=== PATIENT | male | born 1950 | race Caucasian/White ===

== ENCOUNTER 2018-03-01 08:48 | Inpatient (IN) | payer MEDICARE, SELFPAY ==
[2018-03-01] VITALS (29 sets, daily range): BP systolic 91–172; BP diastolic 58–119; PULSE 114–169; RESP 12–25; TEMP 36.5–37.2; O2SAT 92–127; BMI 38.6; BMI 38.0
--- NOTE | 2018-03-01 08:52 | NURSING ---
NO OLD EKGS
--- NOTE | 2018-03-01 08:56 | EKG12_ITS ---
Test Reason : Blood Pressure : / mmHG Vent. Rate : 063 BPM Atrial Rate : 063 BPM P-R Int : 162 ms QRS Dur : 090 ms QT Int : 422 ms P-R-T Axes : 057 017 033 degrees QTc Int : 431 ms Normal sinus rhythm Poor R wave progression Confirmed by JEAN ALONZO, RALPH ([id number]), manager editorial BARRETT GARCIA ([id number] on 03/08/2018 1:38:09 PM Referred By: JEAN Confirmed By:RALPH PENA MD
--- NOTE | 2018-03-01 08:56 | RAD_ITS ---
STUDY: X-RAY CHEST REASON FOR EXAM: Male, 68 years old. Chest discomfort for 6 months. Increased shortness of breath. TECHNIQUE: Frontal and lateral views of the chest. COMPARISON: None. FINDINGS: The lungs are mildly hyperexpanded. There is no demonstrated pleural abnormality. There is moderate cardiomegaly. Normal mediastinum and hussain. Normal visualized pulmonary arteries. Normal visualized aortic arch and descending thoracic aorta. Normal visualized thoracic spine. Normal visualized ribs, clavicles, and shoulders. There is no demonstrated abnormality of the visualized soft tissue structures of the upper abdomen. RAD/Chest PA and Lateral IMPRESSION: Moderate cardiomegaly with hyperexpansion. No acute pathology. Electronically Signed: Tino Palomo MD at 11:05 EST , Service support ,
--- NOTE | 2018-03-01 08:58 | ED.VISSUMM ---
- ER Visit Summary Date of Service: 03/01/18 Chief Complaint: Shortness of breath History of Present Illness: The patient is a 68 M patient presented for evaluation secondary to shortness of breath and atrial flutter. Patient reports that over the course of about the last week or so he has been having issues with shortness of breath. This is associated with dyspnea on exertion and occasional chest discomfort. Patient states that he has had a mild nonproductive cough associated with this. Denies any fevers. Denies any nausea vomiting diarrhea or any other infectious signs or symptoms. He does have an underlying history of asthma. Patient was at his primary care office today, had an EKG taken which showed atrial flutter so is recommended to come to the emergency department. Physical Examination: Vital signs notable heart rate of 151 blood pressure 172/119. Obese male no acute distress. Moist mucous membranes. No JVD. Heart was irregular and tachycardic. 2+ radial pulses bilaterally symmetric. Lung sounds are clear respirations nondistressed. Abdomen soft nontender. No peripheral edema. Skin normal color no rash patient alert and oriented normal strength and sensation. Test Results: Atrial flutter with a 2-[address], T changes, CBC, chemistry, troponin unremarkable. Chest x-ray per my personal review shows no evidence of acute pathology. Emergency Department Course and Treatment: Patient presented with new onset atrial flutter. Workup as noted above was found to be unremarkable other than the patient's EKG. Patient was given Cardizem to 25 mg boluses in the emergency department and continued to have tachycardia. He was started on a Cardizem drip. I believe the patient requires admission. Disposition: Admission Impression: 1. New onset atrial flutter with rapid ventricular rate Critical care time 35 minutes spent consulting with inpatient providers, reviewing patient's records, and administering IV antiarrhythmics. This note was generated with [employer] dictation software. It may contain incorrect words, spelling, and punctuation that were not noted in review of the chart prior to signing ED Disposition - Plan for ED Patient: Chief Complaint: Chest Pain Referrals: Jeevan Hook MD [Primary Care Provider] -
[2018-03-01] MEDS: dilTIAZem 25 MG/5 ML Vial IV BOLUS ×2 (09:01→09:54)
[2018-03-01] MEDS: Aspirin 81 MG TAB.CHEW 324 MG PO (09:01)
[2018-03-01 09:07] LABS: Absolute Lymphocyte Count 2.99 X10^3/ul (0.83-4.51); Absolute Neutrophil Count 4.5 X10^3/uL (2.0-7.7); Basophil# 0.01 X10^3/uL; Basophil% 0.1 % (0-1); Eosinophil# 0.17 X10^3/uL; Hematocrit 44.2 % (40-54); Lymphocyte # 2.99 X10^3/ul (4.0); Mean Corp Hgb Conc 33.9 g/gl (32-36); Mean Corpuscular Hgb 31.4 pg (27.0-32.0); Mean Corpuscular Volume 92.5 fL (80-94); Mean Platelet Vol. 9.7 fl (6.2-12.0); Monocyte# 0.89 X10^3/uL; Monocyte% 10.4 % (0-10); Neutrophil # 4.46 X10^3/uL (2.7-7.7); Neutrophil % 52.3 % (47-70); Platelet Count 183 K/mm3 (150-450); RBC Distribution Width CV 13.1 % (11.6-14.6); RBC Distribution Width SD 44.1 fl (35.1-43.9); Red Blood Count 4.78 M/mm3 (4.6-6.2); White Blood Count 8.5 K/mm3 (4.4-11.0)
[2018-03-01 09:09] LABS: POSITIVE COUNT NO; POSITIVE DIFFERENTIAL NO; POSITIVE MORPHOLOGY NO
[2018-03-01 09:21] LABS: Anion Gap 9 (5-15); BUN 20 mg/dL (7-18); Chloride 105 mmol/L (98-107); Creatinine, Serum 1.25 mg/dL (0.70-1.30); EST Glomerular Filtration Rate 61 mL/min (>60); Est Glom Filt Rate - Afr Amer 73 mL/min (>60); Estimated Creatinine Clearance 60.36 ml/min; Glucose 114 mg/dL (74-106); Potassium 3.5 mmol/L (3.5-5.1); Sodium Level 139 mmol/L (136-145)
--- NOTE | 2018-03-01 11:29 | ECHOCS_ITS ---
Reason For Study: AFlutter Procedure This was a 2D Doppler, Color Flow transthoracic echocardiogram. Contrast injection was performed. Exam performed portable in patient room. Left Ventricle Mild concentric left ventricular hypertrophy. The estimated ejection fraction is 10-15 %. Unable to assess diastolic dysfunction. There is severe global hypokinesis of the left ventricle. Right Ventricle Severely dilated right ventricle. Mild to moderate global right ventricular systolic dysfunction. Atria The left atrium is severely enlarged. The right atrium is severely enlarged. Normal atrial septum. Mitral Valve The mitral valve is structurally normal. No prolapse or stenosis seen. Tricuspid Valve Normal tricuspid valve. Unable to estimate RV systolic pressure due to inadequate jet, pulmonary artery pressure probably normal. Aortic Valve Trisinus/trileaflet aortic valve. Pulmonic Valve Normal pulmonic valve. Great Vessels Normal aortic root. Normal arch. The inferior vena cava is dilated. Inferior vena cava collapse with sniff. Medication Diluted definity 5ml given slow IV push to enhance endocardial definition. MMode/2D Measurements & Calculations LVIDd: 5.2 cm IVSd: 1.3 cm Ao root diam: 4.1 cm LVIDs: 4.2 cm LVPWd: 1.2 cm LA dimension: 4.6 cm RVDd: 5.2 cm FS: 18.5 % LAV(MOD-sp4): 90.6 ml LVAd ap4: 33.0 cm2 SV(MOD-sp4): 29.6 ml EDV(MOD-sp4): 115.8 ml EDV(sp4-el): 114.3 ml LVAs ap4: 26.8 cm2 ESV(MOD-sp4): 86.2 ml ESV(sp4-el): 84.8 ml EF(MOD-sp4): 25.5 % EF(sp4-el): 25.8 % SV(sp4-el): 29.5 ml LA A4 area: 26.7 cm2 LA Area_phl: 27.7 cm2 RA A4 area: 24.9 cm2 Doppler Measurements & Calculations Ao V2 max: 80.1 cm/sec LV V1 max: 63.9 cm/sec PA V2 max: 75.7 cm/sec Ao max P.6 mmHg LV V1 max P.6 mmHg Ao V2 mean: 56.1 cm/sec LV V1 mean P.68 mmHg Ao mean P.4 mmHg LV V1 mean: 36.9 cm/sec Ao V2 VTI: 11.8 cm LV V1 VTI: 9.2 cm Interpretation Summary Mild concentric left ventricular hypertrophy. The estimated ejection fraction is 10-15 %. Unable to assess diastolic dysfunction. There is severe global hypokinesis of the left ventricle. Severely dilated right ventricle. Mild to moderate global right ventricular systolic dysfunction. The left atrium is severely enlarged. The right atrium is severely enlarged. Unable to estimate RV systolic pressure due to inadequate jet, pulmonary artery pressure probably normal. The inferior vena cava is dilated Pt appears to be in atrial flutter. The study was technically difficult. There is no comparison study available. Contrast injection was performed. Ordering Physician: Yusuf Waite Referring Physician: Jeevan Hook Performed By: Aki Kingsley RCS
[2018-03-01] MEDS: Enoxaparin 150 MG/ML Syringe 130 MG SC ×2 (12:15→21:56)
--- NOTE | 2018-03-01 13:32 | PCM.CONS.C ---
Problem List (1) Atrial flutter Status: Acute Reason for Consult Date of Consultation: 03/01/18 Reason for Consultation: Atrial flutter, shortness of breath and dyspnea on exertion History of Present Illness: The patient is a 68 year old M, nondiabetic, non-smoker currently but quit around 4 years ago after a [id number] smoking history. No previous known coronary disease, hypertension, hypercholesterolemia, arrhythmias, CVA, TIA or myocardial infarction. He does not see a ophthalmologist regularly. The patient notes that about 1 year ago he began developing shortness of breath which is progressively worsened over the last several weeks to months. Patient recently underwent strenuous exercise helping to do some construction at his house, he became profoundly short of breath requiring several minutes to recover. Patient had no associated nausea vomiting or chest pain. He sought medical attention in his PCPs office an EKG was performed today which showed atrial flutter with rapid ventricular response. Patient is [place] no sensation of palpitations and does not recall when he may have gone into atrial flutter. He denies any previous diagnosis of atrial fibrillation or flutter. Currently he is resting comfortably, is at his bedside, no acute distress. Patient does state that he occasionally snores, but does not sleep well. He has never been tested for sleep apnea. EKG shows atrial flutter with rapid ventricular response. Cardizem drip is in place. [] Past Medical History Allergies/Adverse Reactions: Allergies No Known Allergies Allergy (Verified 05/29/15 16:14) Home Medications: Ambulatory Orders Medication Instructions Recorded Budesonide/Formoterol Fumarate 1 puff INHALATION PRN PRN 03/01/18 [Symbicort 80-4.5 Mcg Inhaler] Smoking Status: Former smoker Review of Systems - Review of Systems General: Denies: Fever, Night Sweats, Fatigue Cardiovascular: Reports: Shortness of Breath, Shortness of Breath at Rest, Shortness of Breath with Exertion. Denies: Chest Discomfort, Orthopnea, PND, Peripheral Edema, Palpitations, Lightheadedness, Dizziness, Near Syncope, Syncope Respiratory: Denies: Cough, Sputum Production, Hemoptysis Gastrointestinal: Denies: Hematemesis, Hematochezia, Melena Genitourinary: Denies: Dysuria, Hematuria Skin: Denies: Rash Subjectve: Patient laying in bed, no acute distress. Objective: Vital Signs Temp Pulse Resp BP Pulse Ox 97.7 F L 125 H 15 115/91 H 94 03/01/18 12:15 03/01/18 13:00 03/01/18 13:00 03/01/18 13:00 03/01/18 13:00 Oxygen Flow Rate (L/min) 2 Oxygen Delivery Method Room Air Weight: 279 lb 15.793 oz Body Mass Index (BMI) 38.0 Intake and Output for Last 24 Hours 02/27/18 02/28/18 03/01/18 23:59 23:59 23:59 Intake Total 208.8 / 208.8 Output Total 200 / 200 Balance 8.8 / 8.8 General: Awake, Alert, Oriented x 3 HEENT: PERRL, EOMI, Sclera Non Icteric Neck: Supple, Good ROM, No Lymph Node Enlargement Lungs: Clear to auscultation Cardiovascular: Irregular Rhythm, Normal S1, Normal S2, No Murmurs, No Rubs, No Gallops Vascular: No Carotid Bruits, Normal Femoral Pulses, Normal Radial Pulses, Normal Dorsalis Pedal Pulse, Normal Posterior Tibial Pulses Abdomen: Bowel Sounds Present, Soft, Non Tender, No HSM, No Organomegaly Extremities: No Cyanosis, No Clubbing, No edema Neurological: No Focal Motor or Sensory Deficit 03/01/18 08:56: WBC 8.5, RBC 4.78, Hgb 15.0, Hct 44.2, MCV 92.5, MCH 31.4, MCHC 33.9, RDW 13.1, RDW Differential 44.1 H, Plt Count 183, MPV 9.7, Immature Gran % (Auto) 0.200, Neut % (Auto) 52.3, Lymph % (Auto) 35.0, [place] % (Auto) 10.4 H, Eos % (Auto) 2.0, Baso % (Auto) 0.1, Absolute Neuts (auto) 4.5, Total Counted Not Reportable 03/01/18 08:56: Sodium 139, Potassium 3.5, Chloride 105, Carbon Dioxide 25.0, Anion Gap 9, BUN 20 H, Creatinine 1.25, Est GFR (MDRD) Af Amer 73, Est GFR (MDRD) Non-Af 61, BUN/Creatinine Ratio 16.0, Glucose 114 H, Calcium 8.0 L, Troponin I < 0.015 03/01/18 11:45: Troponin I < 0.015 Rhythm: EKG: As above ECHO: Pending Stress Test: Pending Cardiac Cath: PCI: CT Surgery: Holter monitor: EPS: PPM: CXR: Chest CT Scan: Assessment/Plan 1. Atrial flutter: The patient has newly discovered atrial flutter of unknown duration, and his ventricular response is not well controlled. I recommended that he be admitted with subcu Lovenox 1 mg/kg subcu twice daily, Cardizem drip titrated up to keep his heart rate less than 100, rule out for myocardial infarction x3 sets, and if negative proceed with treadmill echocardiogram. If his troponins are abnormal, he will need to proceed with left heart catheterization. In addition he has a 2D echo with Doppler ordered, with results pending. Depending upon the results we will determine whether he requires a stress test or direct catheterization. Assuming he does not require catheterization with then transition him to Eliquis 5 mg p.o. twice daily for period of at least 3 weeks time followed by DC cardioversion if he has not spontaneously converted. In addition we will continue IV Cardizem drip for heart rate control and then transition him to either beta-blockers or p.o. Cardizem depending upon the outcome of his LV function and response IV Cardizem drip. Would also recommend he undergo an outpatient sleep study to determine if he has undiagnosed obstructive sleep apnea. In addition recommend checking a TSH, T4, and lipid profile. 2. Thank you very much for the opportunity to precipitate in the cardiac care of your patient. Consultation time took place between 12 and 12:30 PM. Code Visit Inpatient E&M: 45884 Init Hosp L2
[2018-03-01 14:11] LABS: Cholesterol 159 mg/dL (200); High Density Lipoprotein 39 mg/dL; T4 Free Direct 0.93 ng/dL (0.76-1.46); Thyroid Stim Hormone (TSH) 1.49 uIU/mL (0.358-3.74); Triglycerides 76 mg/dL; Very Low Density Lipoprotein 15 mg/dL (5-40)
--- NOTE | 2018-03-01 14:29 | PCM.HP.STD ---
Problem List (1) Chest pain Status: Acute Qualifiers: Chest pain type: unspecified Qualified Code(s): R07.9 - Chest pain, unspecified (2) Atrial flutter Status: Acute Qualifiers: Atrial flutter type: typical Qualified Code(s): I48.3 - Typical atrial flutter History of Present Illness Date of Admission: 03/01/18 Chief Complaint: shortness of breath. The patient is a 68 year old M having increased dyspnea on exertion. Patient was seeing his primary care doctor's the assumption was that this is asthma and was giving some inhalers. Patient was not noting any benefit from the inhalers. They got an EKG that showed atrial flutter and patient was sent to the emergency room. In the emergency room, patient was noted to be in atrial flutter with RVR and he received total of 50 mg of IV diltiazem followed by a diltiazem drip. Patient has never had atrial flutter before. [] Past Medical History Allergies No Known Allergies Allergy (Verified 05/29/15 16:14) Home Medications: Ambulatory Orders Medication Instructions Recorded Budesonide/Formoterol Fumarate 1 puff INHALATION PRN PRN 03/01/18 [Symbicort 80-4.5 Mcg Inhaler] Surgical History: no surgical history Smoking Status: Former smoker - Quit 30 years ago Tobacco Use: Non-smoker Alcohol: None Drugs: None - *Family History Maternal History Items: Heart Disease Review of Systems Constitutional: Denies: Anorexia, Chills, Fever Eyes: Denies: Blurred vision, Double vision HEENT: Denies: Head Aches, Sinus Congestion, Sinus Drainage Cardiovascular: Reports: Chest Pain. Denies: Palpitations Respiratory: Reports: Shortness of Breath, Shortness of breath upon exertion Gastrointestinal: Denies: Abdominal Pain, Nausea, Vomiting Genitourinary: Denies: Dysuria Musculoskeletal: Denies: Joint Pain, Joint Tenderness Skin: Denies: Rash, Wounds Neurological: Denies: Numbness, Tingling, Focal weakness Psychiatric: Denies: Anxiety, Depression Endocrine: Denies: Change in Body Habitus, Heat/ Cold Intolerance Hematologic/ Lymphatic: Denies: Easy Bruising, Easy Bleeding, Hx of blood clot Comment: A 10 point review of systems were negative except as mentioned in the history of present illness and the other review of systems. VTE Information - Inpt Only VTE Present on Admission: No VTE Mechan Device Prophylaxis: SCD's, None VTE Pharm Prophylaxis ordered?: Yes Patient Problems: Active and Suspected Problems Atrial flutter (Acute) Chest pain (Acute) - Physical Exam General: Alert, Cooperative, No apparent distress HEENT: Atraumatic, Normocephalic Oral: Moist Mucosa, No Gingival or Mucosal Lesions/ Ulcerations Neck: No Nodes, Thyroid Normal Size and Texture Lungs: Clear to auscultation, Normal air movement, No rhonchi, No wheeze Cardiovascular: Irregular Rate, Tachycardic Abdomen: Bowel Sounds Present, Soft, Non Tender, Non-Distended, No Hepato-splenomegaly, Passing Flatus Extremities: No clubbing, No cyanosis, No edema, No Calf Tenderness Skin: No rashes, No breakdown Neurological: Deep Tendon Reflexes 2+/4 and Symmetrical, Coordination normal Psych/Mental Status: Normal Affect, Appropriate Vital Signs Temp Pulse Resp BP Pulse Ox 36.6 C 126 H 22 H 95/58 L 96 03/01/18 13:30 03/01/18 14:00 03/01/18 14:00 03/01/18 14:00 03/01/18 14:00 Oxygen Flow Rate (L/min) 2 Oxygen Delivery Method Room Air Weight: 127 kg Body Mass Index (BMI) 38.0 Intake and Output for Last 24 Hours 02/27/18 02/28/18 03/01/18 23:59 23:59 23:59 Intake Total 208.8 / 208.8 Output Total 200 / 200 Balance 8.8 / 8.8 Laboratory Tests Past 24 Hrs 03/01/18 03/01/18 03/01/18 08:56 08:56 11:45 WBC 8.5 RBC 4.78 Hgb 15.0 Hct 44.2 MCV 92.5 MCH 31.4 MCHC 33.9 RDW 13.1 RDW Differential 44.1 H Plt Count 183 MPV 9.7 Immature Gran % (Auto) 0.200 Neut % (Auto) 52.3 Lymph % (Auto) 35.0 [place] % (Auto) 10.4 H Eos % (Auto) 2.0 Baso % (Auto) 0.1 Absolute Neuts (auto) 4.5 Absolute Lymphs (auto) 2.99 Total Counted Not Reportable Sodium 139 Potassium 3.5 Chloride 105 Carbon Dioxide 25.0 Anion Gap 9 BUN 20 H Creatinine 1.25 Estim Creat Clear Calc 60.36 Est GFR (MDRD) Af Amer 73 Est GFR (MDRD) Non-Af 61 BUN/Creatinine Ratio 16.0 Glucose 114 H Calcium 8.0 L Troponin I < 0.015 < 0.015 Triglycerides Cholesterol LDL Cholesterol VLDL Cholesterol HDL Cholesterol TSH Free T4 03/01/18 03/01/18 11:45 13:10 WBC RBC Hgb Hct MCV MCH MCHC RDW RDW Differential Plt Count MPV Immature Gran % (Auto) Neut % (Auto) Lymph % (Auto) [place] % (Auto) Eos % (Auto) Baso % (Auto) Absolute Neuts (auto) Absolute Lymphs (auto) Total Counted Sodium Potassium Chloride Carbon Dioxide Anion Gap BUN Creatinine Estim Creat Clear Calc Est GFR (MDRD) Af Amer Est GFR (MDRD) Non-Af BUN/Creatinine Ratio Glucose Calcium Troponin I < 0.015 Triglycerides 76 Cholesterol 159 LDL Cholesterol 105 VLDL Cholesterol 15 HDL Cholesterol 39 L TSH 1.49 Free T4 0.93 Assessment/Plan All Active Problems Atrial flutter (Acute) Chest pain (Acute) 1. Atrial flutter with RVR Currently on diltiazem drip plus labetalol. Anticoagulated with Lovenox at this time Follow-up echocardiogram Cardiology following 2. Chest pressure Atypical Rule out cardiac with nuclear stress test 3. DVT prophylaxis: Patient is anticoagulated. Discussed with the patient's significant other at bedside Code Visit Inpatient E&M: [id number] Init Hosp L3
--- NOTE | 2018-03-01 14:34 | HP.PCM_ITS ---
Problem List (1) Chest pain Status: Acute Qualifiers: Chest pain type: unspecified Qualified Code(s): R07.9 - Chest pain, unspecified (2) Atrial flutter Status: Acute Qualifiers: Atrial flutter type: typical Qualified Code(s): I48.3 - Typical atrial flutter History of Present Illness Date of Admission: 03/01/18 Chief Complaint: shortness of breath. The patient is a 68 year old M having increased dyspnea on exertion. Patient was seeing his primary care doctor's the assumption was that this is asthma and was giving some inhalers. Patient was not noting any benefit from the inhalers. They got an EKG that showed atrial flutter and patient was sent to the emergency room. In the emergency room, patient was noted to be in atrial flutter with RVR and he received total of 50 mg of IV diltiazem followed by a diltiazem drip. Patient has never had atrial flutter before. [] Past Medical History Allergies No Known Allergies Allergy (Verified 05/29/15 16:14) Home Medications: Ambulatory Orders Medication Instructions Recorded Budesonide/Formoterol Fumarate 1 puff INHALATION PRN PRN 03/01/18 [Symbicort 80-4.5 Mcg Inhaler] Surgical History: no surgical history Smoking Status: Former smoker - Quit 30 years ago Tobacco Use: Non-smoker Alcohol: None Drugs: None - *Family History Maternal History Items: Heart Disease Review of Systems Constitutional: Denies: Anorexia, Chills, Fever Eyes: Denies: Blurred vision, Double vision HEENT: Denies: Head Aches, Sinus Congestion, Sinus Drainage Cardiovascular: Reports: Chest Pain. Denies: Palpitations Respiratory: Reports: Shortness of Breath, Shortness of breath upon exertion Gastrointestinal: Denies: Abdominal Pain, Nausea, Vomiting Genitourinary: Denies: Dysuria Musculoskeletal: Denies: Joint Pain, Joint Tenderness Skin: Denies: Rash, Wounds Neurological: Denies: Numbness, Tingling, Focal weakness Psychiatric: Denies: Anxiety, Depression Endocrine: Denies: Change in Body Habitus, Heat/ Cold Intolerance Hematologic/ Lymphatic: Denies: Easy Bruising, Easy Bleeding, Hx of blood clot Comment: A 10 point review of systems were negative except as mentioned in the history of present illness and the other review of systems. VTE Information - Inpt Only VTE Present on Admission: No VTE Mechan Device Prophylaxis: SCD's, None VTE Pharm Prophylaxis ordered?: Yes Patient Problems: Active and Suspected Problems Atrial flutter (Acute) Chest pain (Acute) - Physical Exam General: Alert, Cooperative, No apparent distress HEENT: Atraumatic, Normocephalic Oral: Moist Mucosa, No Gingival or Mucosal Lesions/ Ulcerations Neck: No Nodes, Thyroid Normal Size and Texture Lungs: Clear to auscultation, Normal air movement, No rhonchi, No wheeze Cardiovascular: Irregular Rate, Tachycardic Abdomen: Bowel Sounds Present, Soft, Non Tender, Non-Distended, No Hepato- splenomegaly, Passing Flatus Extremities: No clubbing, No cyanosis, No edema, No Calf Tenderness Skin: No rashes, No breakdown Neurological: Deep Tendon Reflexes 2+/4 and Symmetrical, Coordination normal Psych/Mental Status: Normal Affect, Appropriate Vital Signs Temp Pulse Resp BP Pulse Ox 36.6 C 126 H 22 H 95/58 L 96 03/01/18 13:30 03/01/18 14:00 03/01/18 14:00 03/01/18 14:00 03/01/18 14:00 Oxygen Flow Rate (L/min) 2 Oxygen Delivery Method Room Air Weight: 127 kg Body Mass Index (BMI) 38.0 Intake and Output for Last 24 Hours 02/27/18 02/28/18 03/01/18 23:59 23:59 23:59 Intake Total 208.8 / 208.8 Output Total 200 / 200 Balance 8.8 / 8.8 Laboratory Tests Past 24 Hrs 03/01/18 03/01/18 03/01/18 08:56 08:56 11:45 WBC 8.5 RBC 4.78 Hgb 15.0 Hct 44.2 MCV 92.5 MCH 31.4 MCHC 33.9 RDW 13.1 RDW Differential 44.1 H Plt Count 183 MPV 9.7 Immature Gran % (Auto) 0.200 Neut % (Auto) 52.3 Lymph % (Auto) 35.0 [place] % (Auto) 10.4 H Eos % (Auto) 2.0 Baso % (Auto) 0.1 Absolute Neuts (auto) 4.5 Absolute Lymphs (auto) 2.99 Total Counted Not Reportable Sodium 139 Potassium 3.5 Chloride 105 Carbon Dioxide 25.0 Anion Gap 9 BUN 20 H Creatinine 1.25 Estim Creat Clear Calc 60.36 Est GFR (MDRD) Af Amer 73 Est GFR (MDRD) Non-Af 61 BUN/Creatinine Ratio 16.0 Glucose 114 H Calcium 8.0 L Troponin I < 0.015 < 0.015 Triglycerides Cholesterol LDL Cholesterol VLDL Cholesterol HDL Cholesterol TSH Free T4 03/01/18 03/01/18 11:45 13:10 WBC RBC Hgb Hct MCV MCH MCHC RDW RDW Differential Plt Count MPV Immature Gran % (Auto) Neut % (Auto) Lymph % (Auto) [place] % (Auto) Eos % (Auto) Baso % (Auto) Absolute Neuts (auto) Absolute Lymphs (auto) Total Counted Sodium Potassium Chloride Carbon Dioxide Anion Gap BUN Creatinine Estim Creat Clear Calc Est GFR (MDRD) Af Amer Est GFR (MDRD) Non-Af BUN/Creatinine Ratio Glucose Calcium Troponin I < 0.015 Triglycerides 76 Cholesterol 159 LDL Cholesterol 105 VLDL Cholesterol 15 HDL Cholesterol 39 L TSH 1.49 Free T4 0.93 Assessment/Plan All Active Problems Atrial flutter (Acute) Chest pain (Acute) 1. Atrial flutter with RVR * Currently on diltiazem drip plus labetalol. Anticoagulated with Lovenox at this time * Follow-up echocardiogram * Cardiology following 2. Chest pressure * Atypical * Rule out cardiac with nuclear stress test 3. DVT prophylaxis: Patient is anticoagulated. Discussed with the patient's significant other at bedside Code Visit Inpatient E&M: [id number] Init Hosp L3
[2018-03-01] MEDS: Carvedilol 3.125 MG TABLET PO ×2 (15:07→21:53)
[2018-03-01] MEDS: 0.9% NaCl Peripheral Flush Adult/Peds IV ×2 (16:22→20:32)
[2018-03-01] MEDS: Metoprolol Tartrate 5 MG/5 ML Vial IV ×2 (16:22→20:33)
[2018-03-02] VITALS (35 sets, daily range): BP systolic 77–124; BP diastolic 21–95; PULSE 117–123; RESP 12–25; TEMP 36.5–36.9; O2SAT 92–100
--- NOTE | 2018-03-02 00:58 | NURSING ---
This nurse taking over care of this pt. at this time. Report received from Myke Chacon RN,.
[2018-03-02] MEDS: Metoprolol Tartrate 5 MG/5 ML Vial IV ×2 (02:37→17:25)
[2018-03-02] MEDS: 0.9% NaCl Peripheral Flush Adult/Peds IV ×5 (02:38→17:25)
[2018-03-02 07:40] LABS: International Normalized Ratio 1.1; Prothrombin Time (Protime)PT. 14.5 SECONDS (11.7-14.9)
[2018-03-02] MEDS: Aspirin 81 MG TAB.CHEW PO (08:16)
[2018-03-02] MEDS: Carvedilol 3.125 MG TABLET PO ×2 (08:16→10:49)
[2018-03-02] MEDS: Enoxaparin 150 MG/ML Syringe 130 MG SC ×2 (08:16→22:03)
[2018-03-02 10:04] LABS: Anion Gap 8 (5-15); BUN 17 mg/dL (7-18); Calcium,Total 7.9 mg/dL (8.5-10.1); Chloride 108 mmol/L (98-107); Creatinine, Serum 1.06 mg/dL (0.70-1.30); EST Glomerular Filtration Rate 73 mL/min (>60); Est Glom Filt Rate - Afr Amer 89 mL/min (>60); Estimated Creatinine Clearance 71.17 ml/min; Glucose 106 mg/dL (74-106); Potassium 4.1 mmol/L (3.5-5.1); Sodium Level 140 mmol/L (136-145); Thyroid Stim Hormone (TSH) 1.18 uIU/mL (0.358-3.74)
--- NOTE | 2018-03-02 10:58 | PN.CARD_ITS ---
Subjectve: Patient still in atrial flutter this morning with 2-1 conduction. No improvement with maximum dose IV Cardizem on the floor. Coreg started yesterday with no significant improvement in heart rate. Echocardiogram done yesterday showed severe LV dysfunction with biventricular failure, with an EF around 10- 15%. Nuclear medicine stress test canceled. Objective: Vital Signs Temp Pulse Resp BP Pulse Ox 98.0 F 120 H 13 113/84 H 94 03/02/18 08:00 03/02/18 08:00 03/02/18 08:00 03/02/18 08:00 03/02/18 08:00 Oxygen Flow Rate (L/min) 2 Oxygen Delivery Method Room Air Weight: 279 lb 15.793 oz Body Mass Index (BMI) 38.0 Intake and Output for Last 24 Hours 02/28/18 03/01/18 03/02/18 23:59 23:59 23:59 Intake Total 972.8 / 972.8 197 / 197 Output Total 1050 / 1050 400 / 400 Balance -77.2 / -77.2 -203 / -203 General: Awake, Alert, Oriented x 3 HEENT: PERRL, EOMI, Sclera Non Icteric Neck: Supple, Good ROM, No Lymph Node Enlargement Lungs: Clear to auscultation Cardiovascular: Regular Rhythm, Normal S1, Normal S2, No Murmurs, No Rubs, No Gallops Vascular: No Carotid Bruits, Normal Femoral Pulses, Normal Radial Pulses, Normal Dorsalis Pedal Pulse, Normal Posterior Tibial Pulses Abdomen: Bowel Sounds Present, Soft, Non Tender, No HSM, No Organomegaly Extremities: No Cyanosis, No Clubbing, No edema Neurological: No Focal Motor or Sensory Deficit 03/01/18 11:45: Troponin I < 0.015 03/01/18 11:45: Triglycerides 76, Cholesterol 159, LDL Cholesterol 105, VLDL Cholesterol 15, HDL Cholesterol 39 L 03/01/18 13:10: Troponin I < 0.015 03/02/18 07:08: PT 14.5, INR 1.1 03/02/18 07:08: Sodium 140, Potassium 4.1, Chloride 108 H, Carbon Dioxide 24.0, Anion Gap 8, BUN 17, Creatinine 1.06, Est GFR (MDRD) Af Amer 89, Est GFR (MDRD) Non-Af 73, BUN/Creatinine Ratio 16.0, Glucose 106, Calcium 7.9 L Rhythm: Telemetry atrial flutter with rapid ventricular response EKG: ECHO: As above Stress Test: Cardiac Cath: PCI: CT Surgery: Holter monitor: EPS: PPM: CXR: Chest CT Scan: Medical Necessity - Tobacco Use Smoking Status: Former smoker - Quit 30 years ago Tobacco Use: Non-smoker Assessment/Plan 1. Atrial flutter: The patient has newly discovered atrial flutter of unknown duration, and his ventricular response is not well controlled. I recommended that he be admitted with subcu Lovenox 1 mg/kg subcu twice daily,, and patient was tried on a Cardizem drip with unsuccessful heart rate control despite maximal dose of Cardizem. At this point would recommend initiating amiodarone therapy IV per protocol, followed by p.o. amiodarone. His 2D echo with Doppler shows severe global LV dysfunction with an EF around 10-15% and significant RV enlargement. I recommended the patient's stress test be canceled given his severe LV dysfunction, and that he proceed with a left heart catheterization with Dr. Orantes tomorrow morning. In anticipation of possible intervention I will loaded with 300 mg of Plavix x1 followed by 75 mg p.o. daily and 81 mg a day of baby aspirin. If he requires no stenting, I would discontinue his Plavix and substitute this for Eliquis 5 mg p.o. twice daily. If he does not chemically cardiovert with amiodarone, would recommend DC cardioversion in 4 weeks time. Would also recommend he undergo an outpatient sleep study to determine if he has undiagnosed obstructive sleep apnea. In addition recommend checking a TSH, T4, and lipid profile. 2. Thank you very much for the opportunity to precipitate in the cardiac care of your patient. Code Visit Inpatient E&M: 09483 Subs Hosp L2
--- NOTE | 2018-03-02 12:33 | PCM.PROGNOTE ---
Patient Problems: Active and Suspected Problems Atrial flutter (Acute) Chest pain (Acute) Subjective: The patient is a 68-year-old male who presented to the emergency department at [facility] complaining of dyspnea on exertion. He had been having shortness of breath for approximately 1 year. EKG in his primary care doctor's office showed atrial flutter. EKG in the emergency room also showed atrial flutter with rapid ventricular response and he was treated with 15 mg of IV diltiazem followed by a drip. Echocardiogram has showed a 10-15% ejection fraction with mild concentric left ventricular hypertrophy. There was severe global hypokinesis of the left ventricle and a severely dilated right ventricle. Both atria were severely enlarged. Etiology of the CM is unknown at this time....ischemic vs tachycardia induced. He has been seen by Dr. Narendra Lopez and I discussed the case with Dr. Lopez. Patient will need a cardiac catheterization going forward so no stress test during this admission. All events of the past 24 hours been reviewed. Heart rate remains elevated in the 120s range since admission. Fluid balance since admission is -280. Blood pressures are on the low side and at one point early this morning his blood pressure was 81/71. Current blood pressure is 94/74. Electrolytes are unremarkable today and the potassium is 4.1. BUN is 17 and his creatinine has improved from 1.25 at admission to 1.06 today. Troponin x2 were negative. TSH is normal and so is the T4. LDL is 105 with an HDL of 39 and normal triglycerides. Currently being treated with an amiodarone infusion, aspirin, Plavix, carvedilol Objective: General: alert, oriented X3, appropriate with normal affect Neck: supple, trachea midline, carotids have brisk upstroke and decreased pulse volume, + JVD, no carotid bruits Lungs: CTA, symmetric chest expansion, not tachypneic, able to lie flat with no respiratory distress Heart: tachycardic rate and regular rhythm, normal S1, normal S2, no murmur, no gallop, no rub Abdomen: soft, NT, ND, BS's present Extremities: no edema, no calf tenderness, peripheral pulses are normal, no cyanosis - Physical Exam Vital Signs Temp Pulse Resp BP Pulse Ox 98.0 F 120 H 16 94/74 94 03/02/18 08:00 03/02/18 11:30 03/02/18 11:30 03/02/18 11:30 03/02/18 11:30 Oxygen Flow Rate (L/min) 2 Oxygen Delivery Method Room Air Weight: 279 lb 15.793 oz Body Mass Index (BMI) 38.0 Intake and Output for Last 24 Hours 02/28/18 03/01/18 03/02/18 23:59 23:59 23:59 Intake Total 972.8 / 972.8 197 / 197 Output Total 1050 / 1050 400 / 400 Balance -77.2 / -77.2 -203 / -203 Laboratory Tests Past 24 Hrs 03/01/18 03/01/18 03/01/18 11:45 11:45 13:10 PT INR Sodium Potassium Chloride Carbon Dioxide Anion Gap BUN Creatinine Estim Creat Clear Calc Est GFR (MDRD) Af Amer Est GFR (MDRD) Non-Af BUN/Creatinine Ratio Glucose Calcium Troponin I < 0.015 < 0.015 Triglycerides 76 Cholesterol 159 LDL Cholesterol 105 VLDL Cholesterol 15 HDL Cholesterol 39 L TSH 1.49 Free T4 0.93 03/02/18 03/02/18 07:08 07:08 PT 14.5 INR 1.1 Sodium 140 Potassium 4.1 Chloride 108 H Carbon Dioxide 24.0 Anion Gap 8 BUN 17 Creatinine 1.06 Estim Creat Clear Calc 71.17 Est GFR (MDRD) Af Amer 89 Est GFR (MDRD) Non-Af 73 BUN/Creatinine Ratio 16.0 Glucose 106 Calcium 7.9 L Troponin I Triglycerides Cholesterol LDL Cholesterol VLDL Cholesterol HDL Cholesterol TSH 1.18 Free T4 Medical Necessity - Tobacco Use Smoking Status: Former smoker - Quit 30 years ago Tobacco Use: Non-smoker Assessment/Plan All Active Problems Atrial flutter (Acute) Chest pain (Acute) Impressions 1. Atrial flutter with rapid ventricular response -on Cardizem and Coreg with no significant improvement in heart rate. 2. Atypical chest pain 3. Severe cardiomyopathy with a 10-15% ejection fraction-discussed with Dr. Lopez and he recommends discontinue nuclear stress test and patient will need a cardiac catheterization to rule out ischemia as the etiology of the CM vs a tachycardia induced CM. He has been getting RODRIGUES for at least 1 year. Coreg dose increased today. Appreciate input from cardiology. Continue the cardizem Code Visit Inpatient E&M: 14764 Subs Hosp L2
[2018-03-02] MEDS: Clopidogrel Bisulfate 300 MG Tablet PO (12:55)
[2018-03-02] MEDS: Digoxin 250 MCG/ML Ampul IV (14:26)
[2018-03-02] MEDS: Carvedilol 6.25 MG Tablet PO (22:02)
[2018-03-02 22:46] LABS: Color, Urine Yellow (Yellow); Glucose, Dipstick Normal (Normal); Ketone-Dipstick Negative (Negative); Leukocyte Esterase-Dipstick Negative /ul (Negative); Nitrite-Dipstick Negative (Negative); Occult Blood-Urine Negative /ul (Negative); Protein-Dipstick Negative (Negative); Specific Gravity, Urine 1.015 (1.002-1.030); Urine Bilirubin Dipstick Negative (Negative); Urine Clarity Clear (Clear); Urine Urobilinogen Normal (Normal)
[2018-03-03] VITALS (27 sets, daily range): BP systolic 95–129; BP diastolic 63–105; PULSE 113–126; RESP 10–20; TEMP 36.6–38.1; O2SAT 92–96
[2018-03-03 05:22] LABS: Absolute Lymphocyte Count 1.93 X10^3/ul (0.83-4.51); Absolute Neutrophil Count 4.3 X10^3/uL (2.0-7.7); Basophil# 0.01 X10^3/uL; Basophil% 0.1 % (0-1); Eosinophil# 0.12 X10^3/uL; Eosinophils% 1.7 % (0-5); Hematocrit 41.6 % (40-54); Hemoglobin 14.1 g/dl (13.0-16.5); Lymphocyte # 1.93 X10^3/ul (4.0); Lymphocyte % 27.2 % (19-41); Mean Corp Hgb Conc 33.9 g/gl (32-36); Mean Corpuscular Hgb 31.4 pg (27.0-32.0); Mean Corpuscular Volume 92.7 fL (80-94); Mean Platelet Vol. 9.8 fl (6.2-12.0); Monocyte% 9.9 % (0-10); Neutrophil # 4.33 X10^3/uL (2.7-7.7); Platelet Count 177 K/mm3 (150-450); RBC Distribution Width CV 12.9 % (11.6-14.6); RBC Distribution Width SD 42.7 fl (35.1-43.9); Red Blood Count 4.49 M/mm3 (4.6-6.2); White Blood Count 7.1 K/mm3 (4.4-11.0)
[2018-03-03 05:26] LABS: POSITIVE COUNT NO; POSITIVE DIFFERENTIAL NO; POSITIVE MORPHOLOGY NO
[2018-03-03 05:30] LABS: Prothrombin Time (Protime)PT. 13.4 SECONDS (11.7-14.9)
[2018-03-03 05:36] LABS: Anion Gap 8 (5-15); BUN 15 mg/dL (7-18); BUN/Creat Ratio 13.2 RATIO (10-20); Calcium,Total 7.9 mg/dL (8.5-10.1); Chloride 108 mmol/L (98-107); Creatinine, Serum 1.14 mg/dL (0.70-1.30); EST Glomerular Filtration Rate 68 mL/min (>60); Est Glom Filt Rate - Afr Amer 82 mL/min (>60); Estimated Creatinine Clearance 66.18 ml/min; Glucose 99 mg/dL (74-106); Potassium 3.8 mmol/L (3.5-5.1); Sodium Level 143 mmol/L (136-145)
--- NOTE | 2018-03-03 05:55 | EKG12_ITS ---
Test Reason : AM EKG Blood Pressure : / mmHG Vent. Rate : 118 BPM Atrial Rate : 236 BPM P-R Int : 000 ms QRS Dur : 086 ms QT Int : 342 ms P-R-T Axes : 254 025 -29 degrees QTc Int : 479 ms Atrial flutter with variable A-V block with premature ventricular or aberrantly conducted complexes Nonspecific ST abnormality Abnormal ECG Confirmed by JEAN ALONZO, RALPH ([id number]), school photograph editor BARRETT GARCIA ([id number]) on 03/05/2018 3:37:14 PM Referred By: SANTINO Confirmed By:RALPH PENA MD
[2018-03-03] MEDS: Aspirin 81 MG TAB.CHEW PO (06:15)
[2018-03-03] MEDS: Carvedilol 6.25 MG Tablet PO (06:15)
[2018-03-03] MEDS: Clopidogrel Bisulfate 75 MG Tablet PO (06:15)
[2018-03-03] MEDS: DiphenhydrAMINE 25 MG Capsule 50 MG PO (10:12)
--- NOTE | 2018-03-03 11:40 | EKG12_ITS ---
Test Reason : Blood Pressure : / mmHG Vent. Rate : 114 BPM Atrial Rate : 228 BPM P-R Int : 000 ms QRS Dur : 084 ms QT Int : 354 ms P-R-T Axes : 264 036 -33 degrees QTc Int : 487 ms Atrial flutter with 2:1 A-V conduction Abnormal ECG Confirmed by JEAN ALONZO, RALPH ([id number]), editor city BARRETT GARCIA ([id number]) on 03/05/2018 3:34:59 PM Referred By: JEAN Confirmed By:RALPH PENA MD
--- NOTE | 2018-03-03 12:21 | CASEMGMT ---
RN CM Assessment Presentation: Pt presented to ER with chest pain. For Heart Cath today. PCP: Dr. Hook [facility], but requested scripts be [facility]axed to [facility]. Insurance: [facility] Prescription Benefit: yes Living Will/HPOA: pt requesting to complete while @ [facility]. Referral to SW. Ijeoma LNOK: , Eli Wise Living Arrangements: Lives independently with . Transportation: drives DME/HHC: none DC PLAN: Home on dc.
[2018-03-03] MEDS: Digoxin 250 MCG/ML Ampul IV (13:08)
--- NOTE | 2018-03-03 14:46 | CASEMGMT ---
Patient wanted to complete healthcare power of patent attorney and healthcare living will. SW completed these documents with patient. Copies were made. Originals and copies given to patient. A copy of LW and POA placed in chart. Brynn QUINTANILLA
--- NOTE | 2018-03-03 14:58 | PCM.PN.HOSP ---
Patient Problems: Active and Suspected Problems Atrial flutter (Acute) Chest pain (Acute) Subjective: still with aflutter and RVR. + palpitations Vitals/I&O's: Vital Signs Temp Pulse Resp BP Pulse Ox 37.0 C 117 H 15 116/98 H 96 03/03/18 04:00 03/03/18 13:29 03/03/18 13:00 03/03/18 13:00 03/03/18 13:00 Oxygen Flow Rate (L/min) 96 Oxygen Delivery Method Room Air Weight: 127 kg Body Mass Index (BMI) 38.0 Intake and Output for Last 24 Hours 03/01/18 03/02/18 03/03/18 23:59 23:59 23:59 Intake Total 972.8 / 972.8 1405.5 / 1405.5 109 / 109 Output Total 1050 / 1050 550 / 550 Balance -77.2 / -77.2 855.5 / 855.5 109 / 109 General: Alert, No apparent distress HEENT: Atraumatic, Normocephalic Oral: Moist Mucosa Neck: No Nodes, Thyroid Normal Size and Texture Lungs: Clear to auscultation, Normal air movement, No rhonchi, No wheeze Cardiovascular: Normal S1, Normal S2, Irregular Rate, Tachycardic Abdomen: Bowel Sounds Present, Soft, Non Tender, Non-Distended Extremities: No edema, No Calf Tenderness Skin: No rashes, No breakdown Psych/Mental Status: Normal Affect, Appropriate Laboratory Results 03/02/18 20:50: Urine Color Yellow, Urine Clarity Clear, Urine pH 6.0, Ur Specific [place] 1.015, Urine Protein Negative, Urine Glucose (UA) Normal, Urine Ketones Negative, Urine Occult Blood Negative, Urine Nitrite Negative, Urine Bilirubin Negative, Urine Urobilinogen Normal, Ur Leukocyte Esterase Negative 03/03/18 04:54: WBC 7.1, RBC 4.49 L, Hgb 14.1, Hct 41.6, MCV 92.7, MCH 31.4, MCHC 33.9, RDW 12.9, RDW Differential 42.7, Plt Count 177, MPV 9.8, Immature Gran % (Auto) 0.100, Neut % (Auto) 61.0, Lymph % (Auto) 27.2, [place] % (Auto) 9.9, Eos % (Auto) 1.7, Baso % (Auto) 0.1, Absolute Neuts (auto) 4.3, Absolute Lymphs (auto) 1.93, Total Counted Not Reportable 03/03/18 04:54: PT 13.4, INR 1.0, APTT 38.0 H 03/03/18 04:54: Sodium 143, Potassium 3.8, Chloride 108 H, Carbon Dioxide 27.0, Anion Gap 8, BUN 15, Creatinine 1.14, Estim Creat Clear Calc 66.18, Est GFR (MDRD) Af Amer 82, Est GFR (MDRD) Non-Af 68, BUN/Creatinine Ratio 13.2, Glucose 99, Calcium 7.9 L Current Medications Acetaminophen (Tylenol) 650 mg PO Q6H PRN PRN PRN Reason: Mild Pain (1-3)/Temp > 100.7 F Albuterol Sulfate (Ventolin Aerosols) 2.5 mg INHALATION Q6HWA.RT PRN PRN Reason: SHORTNESS OF BREATH Aspirin (Aspirin, Baby) 81 mg PO DAILY@0800 [facility] Last Admin: 03/03/18 06:15 Dose: 81 mg Budesonide (Pulmicort Aerosol) 0.5 mg INHALATION Q12H.RT PRN PRN Reason: SHORTNESS OF BREATH Carvedilol (Coreg) 6.25 mg PO BID [facility] Last Admin: 03/03/18 06:15 Dose: 6.25 mg Heparin Sodium (Beef Lung) (Heparin 500 Unit/5 Ml (100/Ml)) 500 unit IV UD PRN PRN Reason: HEPARIN FLUSH Heparin Sodium (Porcine) (Heparin Na) 0 unit IV UD PRN; Protocol Sodium Chloride () 1,000 mls @ 0 mls/hr IV .Q0M [facility] Heparin Sodium/Dextrose () 25,000 units in 250 mls @ 16 mls/hr IV .[id number] [facility]; Protocol Sodium Chloride () 500 mls @ 15 mls/hr IV .[id number] [facility] Labetalol HCl (Trandate) 5 mg IV X1 PRN PRN Reason: SBP > 160 prior to sheath pull Stop: 03/05/18 11:33 Magnesium Hydroxide (Milk Of Magnesia) 30 ml PO DAILY PRN PRN Reason: Constipation Metoprolol Tartrate (Lopressor (Beta Dacia)) 5 mg IV Q4 PRN PRN Reason: Heart rate greater than 100bpm Last Admin: 03/02/18 17:25 Dose: 5 mg Nitroglycerin (Nitrostat) 0.4 mg SUBLINGUAL Q5M PRN PRN Reason: CHEST PAIN Ondansetron HCl (Zofran) 4 mg IV Q8H PRN PRN PRN Reason: NAUSEA Sodium Chloride () 5 - 15 ml IV UD PRN PRN Reason: SALINE FLUSH Last Admin: 03/02/18 17:25 Dose: 10 ml Medical Necessity - Tobacco Use Smoking Status: Former smoker - Quit 30 years ago Tobacco Use: Non-smoker Assessment/Plan All Active Problems Atrial flutter (Acute) Chest pain (Acute) 1. Atrial flutter with RVR Currently on carvedilol [facility] unremarkable plan for DCC on 03/04 ELLA Orantes 2. Chest pressure Atypical, probably 2/2 above [facility] negative. 3. DVT prophylaxis: Patient is anticoagulated. Code Visit Inpatient E&M: 39896 Subs Hosp L2
--- NOTE | 2018-03-03 15:01 | PN_ITS ---
Patient Problems: Active and Suspected Problems Atrial flutter (Acute) Chest pain (Acute) Subjective: still with aflutter and RVR. + palpitations Vitals/I&O's: Vital Signs Temp Pulse Resp BP Pulse Ox 37.0 C 117 H 15 116/98 H 96 03/03/18 04:00 03/03/18 13:29 03/03/18 13:00 03/03/18 13:00 03/03/18 13:00 Oxygen Flow Rate (L/min) 96 Oxygen Delivery Method Room Air Weight: 127 kg Body Mass Index (BMI) 38.0 Intake and Output for Last 24 Hours 03/01/18 03/02/18 03/03/18 23:59 23:59 23:59 Intake Total 972.8 / 972.8 1405.5 / 1405.5 109 / 109 Output Total 1050 / 1050 550 / 550 Balance -77.2 / -77.2 855.5 / 855.5 109 / 109 General: Alert, No apparent distress HEENT: Atraumatic, Normocephalic Oral: Moist Mucosa Neck: No Nodes, Thyroid Normal Size and Texture Lungs: Clear to auscultation, Normal air movement, No rhonchi, No wheeze Cardiovascular: Normal S1, Normal S2, Irregular Rate, Tachycardic Abdomen: Bowel Sounds Present, Soft, Non Tender, Non-Distended Extremities: No edema, No Calf Tenderness Skin: No rashes, No breakdown Psych/Mental Status: Normal Affect, Appropriate Laboratory Results 03/02/18 20:50: Urine Color Yellow, Urine Clarity Clear, Urine pH 6.0, Ur Specific [place] 1.015, Urine Protein Negative, Urine Glucose (UA) Normal, Urine Ketones Negative, Urine Occult Blood Negative, Urine Nitrite Negative, Urine Bilirubin Negative, Urine Urobilinogen Normal, Ur Leukocyte Esterase Negative 03/03/18 04:54: WBC 7.1, RBC 4.49 L, Hgb 14.1, Hct 41.6, MCV 92.7, MCH 31.4, MCHC 33.9, RDW 12.9, RDW Differential 42.7, Plt Count 177, MPV 9.8, Immature Gran % (Auto) 0.100, Neut % (Auto) 61.0, Lymph % (Auto) 27.2, [place] % (Auto) 9.9, Eos % (Auto) 1.7, Baso % (Auto) 0.1, Absolute Neuts (auto) 4.3, Absolute Lymphs (auto) 1.93, Total Counted Not Reportable 03/03/18 04:54: PT 13.4, INR 1.0, APTT 38.0 H 03/03/18 04:54: Sodium 143, Potassium 3.8, Chloride 108 H, Carbon Dioxide 27.0, Anion Gap 8, BUN 15, Creatinine 1.14, Estim Creat Clear Calc 66.18, Est GFR (MDRD) Af Amer 82, Est GFR (MDRD) Non-Af 68, BUN/Creatinine Ratio 13.2, Glucose 99, Calcium 7.9 L Current Medications Acetaminophen (Tylenol) 650 mg PO Q6H PRN PRN PRN Reason: Mild Pain (1-3)/Temp > 100.7 F Albuterol Sulfate (Ventolin Aerosols) 2.5 mg INHALATION Q6HWA.RT PRN PRN Reason: SHORTNESS OF BREATH Aspirin (Aspirin, Baby) 81 mg PO DAILY@0800 [facility] Last Admin: 03/03/18 06:15 Dose: 81 mg Budesonide (Pulmicort Aerosol) 0.5 mg INHALATION Q12H.RT PRN PRN Reason: SHORTNESS OF BREATH Carvedilol (Coreg) 6.25 mg PO BID [facility] Last Admin: 03/03/18 06:15 Dose: 6.25 mg Heparin Sodium (Beef Lung) (Heparin 500 Unit/5 Ml (100/Ml)) 500 unit IV UD PRN PRN Reason: HEPARIN FLUSH Heparin Sodium (Porcine) (Heparin Na) 0 unit IV UD PRN; Protocol Sodium Chloride () 1,000 mls @ 0 mls/hr IV .Q0M [facility] Heparin Sodium/Dextrose () 25,000 units in 250 mls @ 16 mls/hr IV .[id number] [facility]; Protocol Sodium Chloride () 500 mls @ 15 mls/hr IV .[id number] [facility] Labetalol HCl (Trandate) 5 mg IV X1 PRN PRN Reason: SBP > 160 prior to sheath pull Stop: 03/05/18 11:33 Magnesium Hydroxide (Milk Of Magnesia) 30 ml PO DAILY PRN PRN Reason: Constipation Metoprolol Tartrate (Lopressor (Beta Dacia)) 5 mg IV Q4 PRN PRN Reason: Heart rate greater than 100bpm Last Admin: 03/02/18 17:25 Dose: 5 mg Nitroglycerin (Nitrostat) 0.4 mg SUBLINGUAL Q5M PRN PRN Reason: CHEST PAIN Ondansetron HCl (Zofran) 4 mg IV Q8H PRN PRN PRN Reason: NAUSEA Sodium Chloride () 5 - 15 ml IV UD PRN PRN Reason: SALINE FLUSH Last Admin: 03/02/18 17:25 Dose: 10 ml Medical Necessity - Tobacco Use Smoking Status: Former smoker - Quit 30 years ago Tobacco Use: Non-smoker Assessment/Plan All Active Problems Atrial flutter (Acute) Chest pain (Acute) 1. Atrial flutter with RVR * Currently on carvedilol * LHC unremarkable * plan for DCC on 03/04 * ELLA Orantes 2. Chest pressure * Atypical, probably 2/2 above * LHC negative. 3. DVT prophylaxis: Patient is anticoagulated. Code Visit Inpatient E&M: 04999 Subs Hosp L2
[2018-03-03] MEDS: Metoprolol Tartrate 5 MG/5 ML Vial IV (16:05)
[2018-03-03] MEDS: HEPARIN/D5w 25,000 UNITS 25,000 UNITS/250 ML IV.SOLN. 17 UNITS IV (16:06)
--- NOTE | 2018-03-03 17:14 | CL.D_ITS ---
Patient Name: ROSEANNA BRISENO Study Date: 03/03/2018 Performing: Edu Orantes MD Ht: 72 inches 183 cm : 1950 Wt: 280.4 lbs 127 kg Age: 68 Gender: male BSA: 2.46 PROCEDURE(S) PERFORMED [id number] CLINICAL PROFILE AND INDICATIONS Indications: Cardiomyopathy, Cardiac Arrythmia Heart Failure: NYHA Class: 4 Stress/Imaging Stress/Image Study Performed: No Angina Classification Anginal Classification w/in 2 Weeks: No symptoms CAD Presentations: Other: shortness of breath CONCLUSIONS Normal Left Ventricular End Diastolic Pressure [place] Multivessel CAD RECOMMENDATIONS Medical therapy Further evaluation / care of the cardiac dysrhythmia (atrial flutter) DESCRIPTION OF PROCEDURE The patient arrived to the procedure lab. The risks and benefits of the procedure as well as a full d escription of our services here and current unavailability of surgical backup were fully explained to the patient and/or their significant other prior to the catheterization. The Timeout was completed, verifying the correct patient and procedure. The patient's procedural site was prepped and draped in the usual fashion. Local anesthetic was given subcutaneously to right groin region with Lidocaine 2%. Using a modified Seldinger technique, arterial access was obtained via the right femoral artery, a 4 Fr sheath was inserted Left Coronary Artery selective angiography was performed in multiple views us ing a 4 Fr. JL5 catheter. Right Coronary Artery selective angiography was then performed in multiple views using a 4 Fr. 3DRC catheter. LV to AO pullback pressures were then recorded.The arterial sheath was pulled and manual compression applied until hemostasis is achieved. CORONARY ANGIOGRAPHY DOMINANCE: Right Dominant LEFT HEART ASSESSMENT Left Ventricular Ejection Fraction: Not assessed Normal Left Ventricular End Diastolic Pressure LVEDP: 12 mmHg LEFT MAIN: Angiographically normal LEFT ANTERIOR DECENDING ARTERY: PROX LAD: Mild luminal irregularities DIAGONAL 1: Proximal - 50 % Stenosis (small caliber vessel) CIRCUMFLEX ARTERY: PROX CIRC: Mild luminal irregularities RAMUS: Angiographically normal RIGHT CORONARY ARTERY: Mild luminal irregularities COMPLICATIONS No Complications PROCEDURE MEDICATIONS Versed 1 mg IV Oxygen: 2 L/min via nasal cannula Amiodarone 360mg / 200ml D5W @ 0.5 mg/min IV cont. from floor @ 03/03/2018 10:47:02 SUMMARY OF HEMODYNAMIC DATA Time AIR REST ECG 10:33:39 AO 94/75 (85) SA 11:05:10 LV 101/-7, 28 11:18:48 LV 99/-9, 12 11:18:55 LVp 104/-10, 6 11:19:02 AOp 97/68 (81) 11:19:07 Signed By Edu Orantes MD On 03/03/2018 17:13:46 Edu Orantes MD
--- NOTE | 2018-03-03 21:06 | PN.CARD_ITS ---
Subjectve: The patient has undergone further evaluation with diagnostic cardiac catheterization. He did not appear to have angiographically significant appearing CAD to explain his symptoms, his rhythm, or his echocardiographic findings suggesting diminished LV systolic function. Objective: Vital Signs Temp Pulse Resp BP Pulse Ox 97.9 F 120 H 14 113/79 96 03/03/18 15:00 03/03/18 16:05 03/03/18 15:00 03/03/18 15:00 03/03/18 15:00 Oxygen Flow Rate (L/min) 96 Oxygen Delivery Method Room Air Weight: 279 lb 15.793 oz Body Mass Index (BMI) 38.0 Intake and Output for Last 24 Hours 03/01/18 03/02/18 03/03/18 23:59 23:59 23:59 Intake Total 972.8 / 972.8 1405.5 / 1405.5 589 / 589 Output Total 1050 / 1050 550 / 550 600 / 600 Balance -77.2 / -77.2 855.5 / 855.5 -11 / -11 General: Awake, Alert, Oriented x 3, Cooperative, No Acute Distress HEENT: Atraumatic, Normocephalic, PERRL, EOMI, Sclera Non Icteric Oral: Moist Mucosa Neck: Supple, Good ROM, No JVD Lungs: Clear to auscultation Cardiovascular: Irregular Rhythm, Normal S1, Normal S2 Vascular: Normal Femoral Pulses Abdomen: Bowel Sounds Present, Soft, Non Tender Extremities: No edema Neurological: No Focal Motor or Sensory Deficit Psych/Mental Status: Appropriate 03/02/18 20:50: Urine Color Yellow, Urine Clarity Clear, Urine pH 6.0, Ur Specific [place] 1.015, Urine Protein Negative, Urine Glucose (UA) Normal, Urine Ketones Negative, Urine Occult Blood Negative, Urine Nitrite Negative, Urine Bilirubin Negative, Urine Urobilinogen Normal, Ur Leukocyte Esterase Negative 03/03/18 04:54: WBC 7.1, RBC 4.49 L, Hgb 14.1, Hct 41.6, MCV 92.7, MCH 31.4, MCHC 33.9, RDW 12.9, RDW Differential 42.7, Plt Count 177, MPV 9.8, Immature Gran % (Auto) 0.100, Neut % (Auto) 61.0, Lymph % (Auto) 27.2, [place] % (Auto) 9.9, Eos % (Auto) 1.7, Baso % (Auto) 0.1, Absolute Neuts (auto) 4.3, Total Counted Not Reportable 03/03/18 04:54: PT 13.4, INR 1.0, APTT 38.0 H 03/03/18 04:54: Sodium 143, Potassium 3.8, Chloride 108 H, Carbon Dioxide 27.0, Anion Gap 8, BUN 15, Creatinine 1.14, Est GFR (MDRD) Af Amer 82, Est GFR (MDRD) Non-Af 68, BUN/Creatinine Ratio 13.2, Glucose 99, Calcium 7.9 L Rhythm: Atrial flutter Cardiac Cath: Please see official report Medical Necessity - Tobacco Use Smoking Status: Former smoker - Quit 30 years ago Tobacco Use: Non-smoker Assessment/Plan 1. Atrial flutter The patient has remained in atrial flutter. His rate has been challenging to control despite multiple rate limiting medications, the addition of IV amiodarone, etc. He is now undergone evaluation noninvasively and invasively. 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 This may be secondary to a tachycardic induced event secondary to his atrial dysrhythmia. At the present time it was felt reasonable that he continue medical management. However as his rate is not coming under better control and he is not regaining sinus rhythm he will be considered for TOBIAS guided synchronized biphasic DC cardioversion. 2. Cardiomyopathy Again he appears to have a non-CAD related cardiomyopathy. He should continue medical management. Ideally this would include agents such as beta blockers and afterload reducing agents. In his case would also include attempting to obtain better rate control/sinus rhythm if possible. Thus he will be considered for TOBIAS guided synchronized biphasic DC cardioversion. Comment: The above was discussed and reviewed with the patient and his spouse and the [facility] staff. This note was generated with [employer] dictation software. It may contain incorrect words, spelling, and punctuation that were not noted in checking the note before signing.
[2018-03-03] MEDS: Carvedilol 12.5 MG Tablet PO (22:09)
[2018-03-03 22:39] LABS: Partial Thromboplast Time 49.8 Seconds (24.1-36.2)
[2018-03-03] MEDS: Heparin Injection (Vial) 5,000 UNIT/ML VIAL IV (23:26)
[2018-03-04] VITALS (24 sets, daily range): BP systolic 93–134; BP diastolic 56–85; PULSE 57–125; RESP 16–20; TEMP 36.3–36.8; O2SAT 93–97; BMI 38.0
[2018-03-04] MEDS: HEPARIN/D5w 25,000 UNITS 25,000 UNITS/250 ML IV.SOLN. 18 UNITS IV ×2 (05:02→20:11)
--- NOTE | 2018-03-04 05:30 | EKG12_ITS ---
Test Reason : AM EKG Blood Pressure : / mmHG Vent. Rate : 126 BPM Atrial Rate : 252 BPM P-R Int : 000 ms QRS Dur : 084 ms QT Int : 316 ms P-R-T Axes : 255 014 -60 degrees QTc Int : 457 ms Atrial flutter Abnormal ECG Confirmed by JEAN ALONZO, RALPH ([id number]), brands editor BARRETT GARCIA ([id number]) on 03/08/2018 1:40:54 PM Referred By: SANTINO Confirmed By:RALPH PENA MD
[2018-03-04 05:44] LABS: Hematocrit 41.9 % (40-54); Hemoglobin 14.4 g/dl (13.0-16.5); Mean Corp Hgb Conc 34.4 g/gl (32-36); Mean Corpuscular Hgb 31.2 pg (27.0-32.0); Mean Corpuscular Volume 90.9 fL (80-94); Mean Platelet Vol. 9.6 fl (6.2-12.0); Platelet Count 157 K/mm3 (150-450); RBC Distribution Width CV 12.9 % (11.6-14.6); RBC Distribution Width SD 42.7 fl (35.1-43.9); Red Blood Count 4.61 M/mm3 (4.6-6.2); White Blood Count 10.1 K/mm3 (4.4-11.0)
[2018-03-04 05:46] LABS: Scan Indicated on CBC? Y/N NO
[2018-03-04 05:52] LABS: Partial Thromboplast Time 62.9 Seconds (24.1-36.2)
[2018-03-04 05:59] LABS: BUN 16 mg/dL (7-18); Creatinine, Serum 1.09 mg/dL (0.70-1.30); Estimated Creatinine Clearance 69.22 ml/min; Glucose 104 mg/dL (74-106)
[2018-03-04 06:00] LABS: Anion Gap 9 (5-15); BUN/Creat Ratio 14.7 RATIO (10-20); Chloride 107 mmol/L (98-107); EST Glomerular Filtration Rate 71 mL/min (>60); Est Glom Filt Rate - Afr Amer 86 mL/min (>60); Potassium 3.9 mmol/L (3.5-5.1); Sodium Level 140 mmol/L (136-145)
--- NOTE | 2018-03-04 07:00 | NURSING ---
Reviewed charting of Ayde Kinney and agree with charting.
[2018-03-04] MEDS: Aspirin 81 MG TAB.CHEW PO (08:21)
--- NOTE | 2018-03-04 08:30 | ECHOTEE_ITS ---
Reason For Study: ATRIAL FIB-FLUTTER Medication TOBIAS probe passed with minimal difficulty. No complications were noted. Cetacaine Topical [place] given X3 orally. Versed 2 mg given slow IVP. Fentanyl 100 mcg given slow IVP. Performed a rapid injection of agitated mix of 9 cc saline and 1cc air to assess for atrial septal defect. Left Ventricle Severe global left ventricular systolic dysfunction. The estimated ejection fraction is 20 %. Right Ventricle Moderate global right ventricular systolic dysfunction. Atria No doppler evidence for ASD. Bubble contrast study negative for right to left interatrial shunt. The left atrium is severely enlarged. There is no sponatenous contrast in the left atrium. No thrombus is detected in the left atrial appendage. The right atrium is moderately enlarged. There is no sponatenous contrast in the right atrium. No obvious RA / appendage thrombus identified. Mitral Valve There is no mitral annular calcification. Normal mitral valve. Mild-Moderate (1-2+) mitral valve insufficiency. Tricuspid Valve Normal tricuspid valve. Trivial tricuspid valve insufficiency. Aortic Valve Trisinus/trileaflet aortic valve. Normal aortic valve. Pulmonic Valve The pulmonic valve is not well visualized. Vessels Normal appearing thoracic aorta. Pericardium No pericardial effusion. Interpretation Summary Severe global left ventricular systolic dysfunction. The estimated ejection fraction is 20 %. Moderate global right ventricular systolic dysfunction. The left atrium is severely enlarged. There is no sponatenous contrast in the left atrium. No thrombus is detected in the left atrial appendage. The right atrium is moderately enlarged. Mild-Moderate (1-2+) mitral valve insufficiency. Trivial tricuspid valve insufficiency. Bubble contrast study negative for right to left interatrial shunt. Normal appearing thoracic aorta. Ordering Physician: Edu Orantes Referring Physician: VIVIENNE BORRERO Performed By: Keri Mora, JOHAN
--- NOTE | 2018-03-04 08:44 | NURSING ---
report called to stress lab
--- NOTE | 2018-03-04 10:00 | NURSING ---
Pt returned from stress lab at this time
--- NOTE | 2018-03-04 11:54 | OP.PCM_ITS ---
Problem List (1) Atrial flutter Status: Acute Qualifiers: Atrial flutter type: typical Qualified Code(s): I48.3 - Typical atrial flutter Operative Report Date of Procedure: 03/04/18 Procedure: Synchronized Biphasic DC Cardioversion Indications: Atrial flutter; cardiomyopathy Consent: [Per the Patient] Anesthesia: per Dr. Ferro of pulmonology and critical care medicine with etomidate 8 mg IV push total Procedure: Synchronized Biphasic DC Cardioversion: 50 J x1: Result: Atrial fibrillation Denies biphasic DC cardioversion: 200 J x1: Result: Sinus rhythm; PACs Complications: no apparent complications This note was generated with [employer] software. It may contain incorrect words, spelling, and punctuation that were not noted in checking the note before signing.
[2018-03-04] MEDS: Amiodarone 200 MG Tablet PO ×2 (12:19→23:44)
[2018-03-04] MEDS: SACUBITRIL/VALSARTAN 24/26 MG TABLET 1 EACH PO ×2 (12:19→23:45)
[2018-03-04] MEDS: Carvedilol 12.5 MG Tablet PO ×2 (12:19→23:44)
--- NOTE | 2018-03-04 12:37 | OP.PCM_ITS ---
Problem List (1) Atrial flutter Status: Acute Qualifiers: Atrial flutter type: typical Qualified Code(s): I48.3 - Typical atrial flutter (2) Chest pain Status: Acute Qualifiers: Chest pain type: unspecified Qualified Code(s): R07.9 - Chest pain, unspecified Operative Report Date of Procedure: 03/04/18 - Conscious sedation CONSCIOUS SEDATION REPORT BRIEF HISTORY OF PRESENT ILLNESS: The patient is a 68-year-old male who presented to [facility] for palpitations due to underlying atrial fibrillation. The patient reports no PO intake since midnight. The patient does not have a history of obstructive sleep apnea. The patient reports no history of smoking and COPD. The patient denies any recent constitutional symptoms such as fevers, chills, nausea or vomiting. The patient denies previous anesthetic complications. PHYSICAL EXAMINATION: VITAL SIGNS: Reviewed and were acceptable. GENERAL: The patient is a male, in no apparent distress, speaking in full sentences. HEENT: Normocephalic, atraumatic. Mucous membranes are moist and pink. Good mouth opening noted. Trachea is midline. Good neck mobility. MP III CHEST: S1, S2 irregularly irregular. No murmurs, rubs or gallops were noted. LUNGS: Clear to auscultation bilaterally without appreciable wheezes, rales or rhonchi. ABDOMEN: Soft, nontender, nondistended. Positive bowel sounds. EXTREMITIES: There is no clubbing, cyanosis or edema. ASA Class: II DESCRIPTION OF PROCEDURE: After confirmation of informed consent, the patient's anesthesia plan was reviewed in detail. Etomidate was chosen. Risks and benefits were reviewed and the patient agreed to proceed. At 11:20 a.m., the patient was given 4 mg of etomidate. The patient required a total of 8 mg of etomidate throughout the procedure to achieve appropriate sedation. The patient achieved an appropriate level of sedation and received 2 attempts synchronized cardioversion, at 50 J and [address] Orantes at the bedside. This was successful in achieving normal sinus rhythm. The patient was monitored until 11:29 AM, at which time the patient reached their baseline mental status and function. The patient tolerated the procedure well. COMPLICATIONS: None ESTIMATED BLOOD LOSS: None RECOMMENDATIONS: Okay to recover in usual fashion. Code Visit 9xxxx: Other Procedure See Report - 95346 -9 minutes of conscious sedation
[2018-03-04 12:53] LABS: Partial Thromboplast Time 65.6 Seconds (24.1-36.2)
--- NOTE | 2018-03-04 14:24 | PCM.PN.HOSP ---
Patient Problems: Active and Suspected Problems Atrial flutter (Acute) Chest pain (Acute) Subjective: No chest pain. No shortness of breath. Objective: S/P DCCCV today x 2 and converted to NSR. Vitals/I&O's: Vital Signs Temp Pulse Resp BP Pulse Ox 36.3 C L 68 18 93/64 97 03/04/18 14:19 03/04/18 14:19 03/04/18 14:19 03/04/18 14:19 03/04/18 14:19 Oxygen Flow Rate (L/min) 1 Oxygen Delivery Method Room Air Weight: 127 kg Body Mass Index (BMI) 38.0 Intake and Output for Last 24 Hours 03/02/18 03/03/18 03/04/18 23:59 23:59 23:59 Intake Total 1405.5 / 1405.5 589 / 589 467.2 / 467.2 Output Total 550 / 550 600 / 600 1525 / 1525 Balance 855.5 / 855.5 -11 / -11 -1057.8 / -1057.8 General: Alert, No apparent distress, - - groggy HEENT: Atraumatic, Normocephalic Oral: Moist Mucosa, No Gingival or Mucosal Lesions/ Ulcerations Neck: No Nodes, Thyroid Normal Size and Texture Lungs: Clear to auscultation, Normal air movement, No rhonchi, No wheeze Cardiovascular: Regular rate, Regular Rhythm, Normal S1, Normal S2, No murmurs Abdomen: Bowel Sounds Present, Soft, Non Tender, Non-Distended, No Hepato-splenomegaly Extremities: No edema, No Calf Tenderness Psych/Mental Status: Normal Affect, Appropriate Laboratory Results 03/03/18 22:17: APTT 49.8 H 03/04/18 05:25: Sodium 140, Potassium 3.9, Chloride 107, Carbon Dioxide 24.0, Anion Gap 9, BUN 16, Creatinine 1.09, Estim Creat Clear Calc 69.22, Est GFR (MDRD) Af Amer 86, Est GFR (MDRD) Non-Af 71, BUN/Creatinine Ratio 14.7, Glucose 104, Calcium 8.0 L 03/04/18 05:25: APTT 62.9 H 03/04/18 05:25: WBC 10.1, RBC 4.61, Hgb 14.4, Hct 41.9, MCV 90.9, MCH 31.2, MCHC 34.4, RDW 12.9, RDW Differential 42.7, Plt Count 157, MPV 9.6 03/04/18 12:00: APTT 65.6 H Current Medications Acetaminophen (Tylenol) 650 mg PO Q6H PRN PRN PRN Reason: Mild Pain (1-3)/Temp > 100.7 F Albuterol Sulfate (Ventolin Aerosols) 2.5 mg INHALATION Q6HWA.RT PRN PRN Reason: SHORTNESS OF BREATH Amiodarone HCl (Cordarone) 200 mg PO TID [facility] Last Admin: 03/04/18 12:19 Dose: 200 mg Aspirin (Aspirin, Baby) 81 mg PO DAILY@0800 [facility] Last Admin: 03/04/18 08:21 Dose: 81 mg Budesonide (Pulmicort Aerosol) 0.5 mg INHALATION Q12H.RT PRN PRN Reason: SHORTNESS OF BREATH Carvedilol (Coreg) 12.5 mg PO BID [facility] Last Admin: 03/04/18 12:19 Dose: 12.5 mg Heparin Sodium (Beef Lung) (Heparin 500 Unit/5 Ml (100/Ml)) 500 unit IV UD PRN PRN Reason: HEPARIN FLUSH Heparin Sodium (Porcine) (Heparin Na) 0 unit IV UD PRN; Protocol Last Admin: 03/03/18 23:26 Dose: 1,000 unit Sodium Chloride () 1,000 mls @ 0 mls/hr IV .Q0M [facility] Heparin Sodium/Dextrose () 25,000 units in 250 mls @ 16 mls/hr IV .[id number] [facility]; Protocol Last Admin: 03/04/18 05:02 Dose: 18 mls/hr Sodium Chloride () 500 mls @ 15 mls/hr IV .[id number] [facility] Last Admin: 03/04/18 08:21 Dose: 15 mls/hr Labetalol HCl (Trandate) 5 mg IV X1 PRN PRN Reason: SBP > 160 prior to sheath pull Stop: 03/05/18 11:33 Magnesium Hydroxide (Milk Of Magnesia) 30 ml PO DAILY PRN PRN Reason: Constipation Metoprolol Tartrate (Lopressor (Beta Dacia)) 5 mg IV Q4 PRN PRN Reason: Heart rate greater than 100bpm Last Admin: 03/03/18 16:05 Dose: 5 mg Nitroglycerin (Nitrostat) 0.4 mg SUBLINGUAL Q5M PRN PRN Reason: CHEST PAIN Ondansetron HCl (Zofran) 4 mg IV Q8H PRN PRN PRN Reason: NAUSEA Sodium Chloride () 5 - 15 ml IV UD PRN PRN Reason: SALINE FLUSH Last Admin: 03/02/18 17:25 Dose: 10 ml Medical Necessity - Tobacco Use Smoking Status: Former smoker - Quit 30 years ago Tobacco Use: Non-smoker Assessment/Plan All Active Problems Atrial flutter (Acute) Chest pain (Acute) 1. Atrial flutter with RVR converted with DCCV today Currently on carvedilol, amio and heparin gtt LHC unremarkable DW Dr. Orantes 2. Chest pressure Atypical, probably 2/[address] [facility] negative. 3. DVT prophylaxis: Patient is anticoagulated. Code Visit Inpatient E&M: 28706 Subs Hosp L2
--- NOTE | 2018-03-04 14:27 | PN_ITS ---
Patient Problems: Active and Suspected Problems Atrial flutter (Acute) Chest pain (Acute) Subjective: No chest pain. No shortness of breath. Objective: S/P DCCCV today x 2 and converted to NSR. Vitals/I&O's: Vital Signs Temp Pulse Resp BP Pulse Ox 36.3 C L 68 18 93/64 97 03/04/18 14:19 03/04/18 14:19 03/04/18 14:19 03/04/18 14:19 03/04/18 14:19 Oxygen Flow Rate (L/min) 1 Oxygen Delivery Method Room Air Weight: 127 kg Body Mass Index (BMI) 38.0 Intake and Output for Last 24 Hours 03/02/18 03/03/18 03/04/18 23:59 23:59 23:59 Intake Total 1405.5 / 1405.5 589 / 589 467.2 / 467.2 Output Total 550 / 550 600 / 600 1525 / 1525 Balance 855.5 / 855.5 -11 / -11 -1057.8 / -1057.8 General: Alert, No apparent distress, - - groggy HEENT: Atraumatic, Normocephalic Oral: Moist Mucosa, No Gingival or Mucosal Lesions/ Ulcerations Neck: No Nodes, Thyroid Normal Size and Texture Lungs: Clear to auscultation, Normal air movement, No rhonchi, No wheeze Cardiovascular: Regular rate, Regular Rhythm, Normal S1, Normal S2, No murmurs Abdomen: Bowel Sounds Present, Soft, Non Tender, Non-Distended, No Hepato- splenomegaly Extremities: No edema, No Calf Tenderness Psych/Mental Status: Normal Affect, Appropriate Laboratory Results 03/03/18 22:17: APTT 49.8 H 03/04/18 05:25: Sodium 140, Potassium 3.9, Chloride 107, Carbon Dioxide 24.0, Anion Gap 9, BUN 16, Creatinine 1.09, Estim Creat Clear Calc 69.22, Est GFR (MDRD) Af Amer 86, Est GFR (MDRD) Non-Af 71, BUN/Creatinine Ratio 14.7, Glucose 104, Calcium 8.0 L 03/04/18 05:25: APTT 62.9 H 03/04/18 05:25: WBC 10.1, RBC 4.61, Hgb 14.4, Hct 41.9, MCV 90.9, MCH 31.2, MCHC 34.4, RDW 12.9, RDW Differential 42.7, Plt Count 157, MPV 9.6 03/04/18 12:00: APTT 65.6 H Current Medications Acetaminophen (Tylenol) 650 mg PO Q6H PRN PRN PRN Reason: Mild Pain (1-3)/Temp > 100.7 F Albuterol Sulfate (Ventolin Aerosols) 2.5 mg INHALATION Q6HWA.RT PRN PRN Reason: SHORTNESS OF BREATH Amiodarone HCl (Cordarone) 200 mg PO TID [facility] Last Admin: 03/04/18 12:19 Dose: 200 mg Aspirin (Aspirin, Baby) 81 mg PO DAILY@0800 [facility] Last Admin: 03/04/18 08:21 Dose: 81 mg Budesonide (Pulmicort Aerosol) 0.5 mg INHALATION Q12H.RT PRN PRN Reason: SHORTNESS OF BREATH Carvedilol (Coreg) 12.5 mg PO BID [facility] Last Admin: 03/04/18 12:19 Dose: 12.5 mg Heparin Sodium (Beef Lung) (Heparin 500 Unit/5 Ml (100/Ml)) 500 unit IV UD PRN PRN Reason: HEPARIN FLUSH Heparin Sodium (Porcine) (Heparin Na) 0 unit IV UD PRN; Protocol Last Admin: 03/03/18 23:26 Dose: 1,000 unit Sodium Chloride () 1,000 mls @ 0 mls/hr IV .Q0M [facility] Heparin Sodium/Dextrose () 25,000 units in 250 mls @ 16 mls/hr IV .[id number] [facility]; Protocol Last Admin: 03/04/18 05:02 Dose: 18 mls/hr Sodium Chloride () 500 mls @ 15 mls/hr IV .[id number] [facility] Last Admin: 03/04/18 08:21 Dose: 15 mls/hr Labetalol HCl (Trandate) 5 mg IV X1 PRN PRN Reason: SBP > 160 prior to sheath pull Stop: 03/05/18 11:33 Magnesium Hydroxide (Milk Of Magnesia) 30 ml PO DAILY PRN PRN Reason: Constipation Metoprolol Tartrate (Lopressor (Beta Dacia)) 5 mg IV Q4 PRN PRN Reason: Heart rate greater than 100bpm Last Admin: 03/03/18 16:05 Dose: 5 mg Nitroglycerin (Nitrostat) 0.4 mg SUBLINGUAL Q5M PRN PRN Reason: CHEST PAIN Ondansetron HCl (Zofran) 4 mg IV Q8H PRN PRN PRN Reason: NAUSEA Sodium Chloride () 5 - 15 ml IV UD PRN PRN Reason: SALINE FLUSH Last Admin: 03/02/18 17:25 Dose: 10 ml Medical Necessity - Tobacco Use Smoking Status: Former smoker - Quit 30 years ago Tobacco Use: Non-smoker Assessment/Plan All Active Problems Atrial flutter (Acute) Chest pain (Acute) 1. Atrial flutter with RVR * converted with DCCV today * Currently on carvedilol, amio and heparin gtt * LHC unremarkable * DW Dr. Orantes 2. Chest pressure * Atypical, probably 2/2 above * LHC negative. 3. DVT prophylaxis: Patient is anticoagulated. Code Visit Inpatient E&M: 69791 Subs Hosp L2
[2018-03-04] MEDS: Etomidate 20 MG/10 ML Vial IV (14:41)
--- NOTE | 2018-03-04 17:24 | PCM.PN.CARD ---
Subjectve: The patient underwent TOBIAS guided synchronized biphasic DC cardioversion earlier this day. This evaluation/care plan resulted in the return of sinus rhythm. He appeared to undergo his procedures without obvious adverse event. Objective: Vital Signs Temp Pulse Resp BP Pulse Ox 97.9 F 71 16 111/65 96 03/04/18 16:53 03/04/18 16:53 03/04/18 16:53 03/04/18 16:53 03/04/18 16:53 Oxygen Flow Rate (L/min) 1 Oxygen Delivery Method Room Air Weight: 279 lb 15.793 oz Body Mass Index (BMI) 38.0 Intake and Output for Last 24 Hours 03/02/18 03/03/18 03/04/18 23:59 23:59 23:59 Intake Total 1405.5 / 1405.5 589 / 589 467.2 / 467.2 Output Total 550 / 550 600 / 600 1525 / 1525 Balance 855.5 / 855.5 -11 / -11 -1057.8 / -1057.8 General: Awake, Alert, Oriented x 3, Cooperative, No Acute Distress HEENT: Atraumatic, Normocephalic, PERRL, EOMI, Sclera Non Icteric Oral: Moist Mucosa Neck: Supple, Good ROM, No JVD Lungs: Clear to auscultation Cardiovascular: Regular Rhythm, Normal S1, Normal S2 Abdomen: Bowel Sounds Present, Soft, Non Tender Extremities: No edema Neurological: No Focal Motor or Sensory Deficit Psych/Mental Status: Appropriate 03/03/18 22:17: APTT 49.8 H 03/04/18 05:25: Sodium 140, Potassium 3.9, Chloride 107, Carbon Dioxide 24.0, Anion Gap 9, BUN 16, Creatinine 1.09, Est GFR (MDRD) Af Amer 86, Est GFR (MDRD) Non-Af 71, BUN/Creatinine Ratio 14.7, Glucose 104, Calcium 8.0 L 03/04/18 05:25: APTT 62.9 H 03/04/18 05:25: WBC 10.1, RBC 4.61, Hgb 14.4, Hct 41.9, MCV 90.9, MCH 31.2, MCHC 34.4, RDW 12.9, RDW Differential 42.7, Plt Count 157, MPV 9.6 03/04/18 12:00: APTT 65.6 H Rhythm: Atrial flutter; sinus rhythm EKG: Status post DC cardioversion: Sinus rhythm TOBIAS: Please see official report: Of note: No left atrial appendage thrombus identified Medical Necessity - Tobacco Use Smoking Status: Former smoker - Quit 30 years ago Tobacco Use: Non-smoker Assessment/Plan 1. Atrial flutter The patient has remained in atrial flutter. His rate has been challenging to control despite multiple rate limiting medications, the addition of IV amiodarone, etc. He is now undergone evaluation noninvasively and invasively. 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 This may be secondary to a tachycardic induced event secondary to his atrial dysrhythmia. Is biphasic DC cardioversion. He did regain sinus rhythm. He will continue a combination of medical therapy with rate control therapy, antiarrhythmic therapy, and anticoagulant therapy. 2. Cardiomyopathy Again he appears to have a non-CAD related cardiomyopathy. He should continue medical management. Ideally this would include agents such as beta blockers and afterload reducing agents. Hopefully regaining sinus rhythm and maintaining rate control will allow his ventricle an opportunity to improve with respect to overall LV systolic function. This will need to be followed over time with echocardiographic studies. Comment: The above was discussed and reviewed with the patient and his spouse and the [facility] staff. This note was generated with [employer] dictation software. It may contain incorrect words, spelling, and punctuation that were not noted in checking the note before signing.
[2018-03-04 18:48] LABS: Partial Thromboplast Time 58.7 Seconds (24.1-36.2)
--- NOTE | 2018-03-04 23:30 | NURSING ---
This nurse along with vishnu Shrestha RN discussed at length with and patient the new medications pt. is on along with side effects and what medications are used for. is very concerned about side effects of medications and cannot understand why they are being given if side effects are kidney injury and irregular hearbeat. This nurse also discussed with and pt. what ejection fraction was and CHF. and pt. instructed to discuss with equine breeder in the morning.
[2018-03-05 04:22] VITALS: BP 105/54; PULSE 64; RESP 18; TEMP 37.1; O2SAT 95
--- NOTE | 2018-03-05 05:55 | EKG12_ITS ---
Test Reason : MORNING EKG Blood Pressure : / mmHG Vent. Rate : 060 BPM Atrial Rate : 060 BPM P-R Int : 160 ms QRS Dur : 090 ms QT Int : 442 ms P-R-T Axes : 065 033 024 degrees QTc Int : 442 ms Normal sinus rhythm Normal ECG Confirmed by JEAN ALONZO, RALPH ([id number]), television news video editor BARRETT GARCIA ([id number]) on 03/08/2018 1:31:43 PM Referred By: SANTINO Confirmed By:RALPH PENA MD
[2018-03-05] MEDS: Amiodarone 200 MG Tablet PO ×2 (06:56→13:08)
[2018-03-05 07:00] VITALS: PULSE 61
[2018-03-05 07:34] LABS: Hematocrit 39.7 % (40-54); Hemoglobin 13.9 g/dl (13.0-16.5); Mean Corpuscular Hgb 32.2 pg (27.0-32.0); Mean Corpuscular Volume 91.9 fL (80-94); Platelet Count 162 K/mm3 (150-450); RBC Distribution Width CV 12.7 % (11.6-14.6); RBC Distribution Width SD 41.6 fl (35.1-43.9); Red Blood Count 4.32 M/mm3 (4.6-6.2); White Blood Count 8.7 K/mm3 (4.4-11.0)
[2018-03-05 07:37] LABS: Scan Indicated on CBC? Y/N NO
[2018-03-05 07:53] LABS: Anion Gap 7 (5-15); BUN 16 mg/dL (7-18); BUN/Creat Ratio 15.4 RATIO (10-20); Calcium,Total 8.2 mg/dL (8.5-10.1); Chloride 106 mmol/L (98-107); Creatinine, Serum 1.04 mg/dL (0.70-1.30); EST Glomerular Filtration Rate 75 mL/min (>60); Est Glom Filt Rate - Afr Amer 91 mL/min (>60); Estimated Creatinine Clearance 72.54 ml/min; Glucose 106 mg/dL (74-106); Potassium 3.9 mmol/L (3.5-5.1); Sodium Level 137 mmol/L (136-145)
[2018-03-05 07:58] LABS: Partial Thromboplast Time 71.3 Seconds (24.1-36.2)
[2018-03-05 10:50] VITALS: BP 123/76; PULSE 63; RESP 14; TEMP 36.7; O2SAT 94
[2018-03-05] MEDS: Carvedilol 12.5 MG Tablet PO (10:51)
[2018-03-05] MEDS: Aspirin 81 MG TAB.CHEW PO (10:51)
[2018-03-05] MEDS: SACUBITRIL/VALSARTAN 24/26 MG TABLET 1 EACH PO (10:52)
[2018-03-05] MEDS: HEPARIN/D5w 25,000 UNITS 25,000 UNITS/250 ML IV.SOLN. 16 UNITS IV (10:55)
[2018-03-05 11:00] VITALS: PULSE 62
[2018-03-05 15:00] VITALS: PULSE 56
[2018-03-05 15:17] VITALS: BP 106/66; PULSE 57; RESP 14; TEMP 36.8; O2SAT 93
--- NOTE | 2018-03-05 15:58 | CASEMGMT ---
Per Luke CARR, pt to be sent home on Xarelto at discharge and med e-scribed to [facility] previously. Call to Jourdan at [facility] to check on coverage and co-pay and per Jourdan, they do not have prescription insurance card on file for pt at this time. This [employer] [employer] to room at this time and per pt/, they do not have card with them and state pt has not been on any meds recently. Pt/ provided with Xarelto 30 day free card and explanation done, voice understanding. Pt/ aware that if co-pay is too high, they will have a month free and then they can f/u with Dr. Orantes and let him know, voice understanding. Pt/ voice no further questions/concerns/needs at this time. Pt/ are awaiting Dr. Orantes as is not sure that she wants pt to be on Xarelto in the first place. [facility] [employer]
[2018-03-05] MEDS: Rivaroxaban 20 MG Tablet PO (17:07)
--- NOTE | 2018-03-05 17:46 | DCINST_ITS ---
- Discharge Diagnoses Current Active Problems: Current Active and Chronic Problems Atrial flutter (Acute) Chest pain (Acute) You will use the following diet at home:: Cardiac - <2 grams sodium per day Your food should be the consistency of: Regular Your liquids should be the consistency of: Regular/Thin Discharge Activity: Return to Normal Activity Allergies/Adverse Reactions: Allergies No Known Allergies Allergy (Verified 05/29/15 16:14) Medications to take at Discharge Budesonide/Formoterol Fumarate [Symbicort 80-4.5 Mcg Inhaler] 1 puff INHALATION PRN PRN 03/01/18 Amiodarone HCl [Cordarone] 200 mg PO TID #56 tablet 03/05/18 Aspirin [Aspirin, Baby] 81 mg PO DAILY@0800 tab.chew 03/05/18 Carvedilol [Coreg (Beta Dacia)] 12.5 mg PO BID #60 tablet 03/05/18 Rivaroxaban [Xarelto] 20 mg PO DAILY #30 tablet 03/05/18 Sacubitril/Valsartan 24/26 mg [Entresto 24 mg-26 mg Tablet] 1 each PO BID #60 tablet 03/05/18 The following prescriptions were given: Amiodarone HCl [Cordarone] 200 mg PO TID #56 tablet Carvedilol [Coreg (Beta Dacia)] 12.5 mg PO BID #60 tablet Rivaroxaban [Xarelto] 20 mg PO DAILY #30 tablet Sacubitril/Valsartan 24/26 mg [Entresto 24 mg-26 mg Tablet] 1 each PO BID #60 tablet Primary Care Physician: Jeevan Hook MD [Primary Care Provider] - Please follow up with your Primary Care Physician in: 1-2 weeks Test Results: Test results from this visit will be discussed in further detail at your follow- up appointment, if applicable. Please Follow Up With: Edu Orantes MD When: 2 weeks Proposed Discharge Date: 03/05/18
--- NOTE | 2018-03-05 17:51 | DS.PCM_ITS ---
<Godry Raines - Last Filed: 03/05/18 17:53> Discharge Date and Diagnosis - Problem List Patient Problems: Active and Suspected Problems Atrial flutter (Acute) Chest pain (Acute) Date of Admission: 03/01/18 Date of Discharge: 03/05/18 - Primary Discharge Diagnosis Active and Suspected Problems Atrial flutter (Acute) with RVR Chest pressure Nonischemic cardiomyopathy, unclear etiology 1-2+ MVI LA and RA enlargement Hospital Course and Treatment Imaging Results: TOBIAS: Interpretation Summary Severe global left ventricular systolic dysfunction. The estimated ejection fraction is 20 %. Moderate global right ventricular systolic dysfunction. The left atrium is severely enlarged. There is no sponatenous contrast in the left atrium. No thrombus is detected in the left atrial appendage. The right atrium is moderately enlarged. Mild-Moderate (1-2+) mitral valve insufficiency. Trivial tricuspid valve insufficiency. Bubble contrast study negative for right to left interatrial shunt. Normal appearing thoracic aorta. Heart Cath: CONCLUSIONS Normal Left Ventricular End Diastolic Pressure [place] Multivessel CAD RECOMMENDATIONS Medical therapy Further evaluation / care of the cardiac dysrhythmia (atrial flutter) RAD/Chest PA and Lateral IMPRESSION: Moderate cardiomegaly with hyperexpansion. No acute pathology. TTE: Interpretation Summary Mild concentric left ventricular hypertrophy. The estimated ejection fraction is 10-15 %. Unable to assess diastolic dysfunction. There is severe global hypokinesis of the left ventricle. Severely dilated right ventricle. Mild to moderate global right ventricular systolic dysfunction. The left atrium is severely enlarged. The right atrium is severely enlarged. Unable to estimate RV systolic pressure due to inadequate jet, pulmonary artery pressure probably normal. The inferior vena cava is dilated Pt appears to be in atrial flutter. The study was technically difficult. There is no comparison study available. Contrast injection was performed. Consultations Consults: [facility] - cardiology [place] - critical care/pulm (procedural sedation) Operations: None Procedures: Cardiac catheterization, Cardioversion, Transesophageal Echo, Transthoracic echo Summary of Care Provided: Hospital Course: The patient is a 68 year old M with past medical history including former smoker, [place] with agent orange exposure, however not on any medications at home and without reported chronic disease, who presented to the emergency room with chief complaint of shortness of breath, dyspnea on exertion, and chest pressure who was sent to the emergency room from his PCPs office where he was being seen for ongoing SOB with concern exertion and found on exam and EKG to have atrial flutter. In the ER he had a flutter and was given IV diltiazem bolus followed by diltiazem drip. Cardiology was consulted. The patient was admitted to the PCU on telemetry. He was anticoagulated with Lovenox initially. Echocardiogram showed EF of 10-15%, and other findings as above. His rate was not controlled after admission and he required being placed on an amiodarone drip. He was also started on Coreg. He continued to have no control. He was placed on a heparin drip and planned for cardioversion. A TOBIAS was performed and was negative for thrombus, it did show an EF of 20%, and other findings as above. He underwent a successful cardioversion and remained in sinus rhythm afterwards. He also had a heart catheterization which did not demonstrate any significant coronary disease. He was placed on Xarelto, Coreg, tapering amiodarone dose (1 week 200 3 times daily, 2 weeks 200 twice daily, and then 200 daily following that), he was also placed on Entresto twice daily, and baby aspirin. He and his expressed reluctance about taking any medications after leaving the hospital, and a great deal of time spent discussing the importance of continuing his current medication regimen with close follow-up for continued monitoring of his ongoing medical care, particularly with risk of stroke if he does not take blood thinners. He was discharged home in stable co ndition and will need to follow-up with his PCP in 1-2 weeks, and with cardiology in 2 weeks. This patient was seen by Gordy Raines PA-C under the supervision of Doctor Waite. [] Patient Problems: Active and Suspected Problems Atrial flutter (Acute) Chest pain (Acute) - Physical Exam General: Alert, Oriented x3, Cooperative HEENT: Atraumatic, PERRLA, EOMI, Normocephalic Neck: Supple, No JVD, Negative Carotid Bruits Lungs: Clear to auscultation, Normal air movement Cardiovascular: Regular rate, No murmurs Abdomen: Bowel Sounds Present, Soft, Non Tender Extremities: No edema, Capillary Refill Less than 3 Seconds Skin: No rashes, No breakdown Musculoskeletal: No Tenderness to Palpation of Joints or Extremities Neurological: Cranial nerves II-XII grossly intact Psych/Mental Status: Normal Affect, Appropriate, Alert and oriented to time, place, person, mood and affect Vital Signs Temp Pulse Resp BP Pulse Ox 98.3 F 57 L 14 106/66 93 03/05/18 15:17 03/05/18 15:17 03/05/18 15:17 03/05/18 15:17 03/05/18 15:17 Oxygen Flow Rate (L/min) 1 Oxygen Delivery Method Room Air Weight: 279 lb 15.793 oz Body Mass Index (BMI) 38.0 Intake and Output for Last 24 Hours 03/03/18 03/04/18 03/05/18 23:59 23:59 23:59 Intake Total 589 / 589 707.2 / 707.2 984 / 984 Output Total 600 / 600 1525 / 1525 1000 / 1000 Balance -11 / -11 -817.8 / -817.8 -16 / -16 Laboratory Tests Past 24 Hrs 03/04/18 03/05/18 03/05/18 18:20 07:00 07:00 WBC RBC Hgb Hct MCV MCH MCHC RDW RDW Differential Plt Count MPV APTT 58.7 H 71.3 H Sodium 137 Potassium 3.9 Chloride 106 Carbon Dioxide 24.0 Anion Gap 7 BUN 16 Creatinine 1.04 Estim Creat Clear Calc 72.54 Est GFR (MDRD) Af Amer 91 Est GFR (MDRD) Non-Af 75 BUN/Creatinine Ratio 15.4 Glucose 106 Calcium 8.2 L 03/05/18 07:00 WBC 8.7 RBC 4.32 L Hgb 13.9 Hct 39.7 L MCV 91.9 MCH 32.2 H MCHC 35.0 RDW 12.7 RDW Differential 41.6 Plt Count 162 MPV 10.0 APTT Sodium Potassium Chloride Carbon Dioxide Anion Gap BUN Creatinine Estim Creat Clear Calc Est GFR (MDRD) Af Amer Est GFR (MDRD) Non-Af BUN/Creatinine Ratio Glucose Calcium Discharge Diet: Low fat/ Low Cholesterol, 2000 mg Sodium Diet Discharge Activity: Return to Normal Activity Home Medications: Medications to take at Discharge Budesonide/Formoterol Fumarate [Symbicort 80-4.5 Mcg Inhaler] 1 puff INHALATION PRN PRN 03/01/18 Amiodarone HCl [Cordarone] 200 mg PO TID #56 tablet 03/05/18 Aspirin [Aspirin, Baby] 81 mg PO DAILY@0800 tab.chew 03/05/18 Carvedilol [Coreg (Beta Dacia)] 12.5 mg PO BID #60 tablet 03/05/18 Rivaroxaban [Xarelto] 20 mg PO DAILY #30 tablet 03/05/18 Sacubitril/Valsartan 24/26 mg [Entresto 24 mg-26 mg Tablet] 1 each PO BID #60 tablet 03/05/18 Following Prescrptions Were Given to Patient: Amiodarone HCl [Cordarone] 200 mg PO TID #56 tablet Carvedilol [Coreg (Beta Dacia)] 12.5 mg PO BID #60 tablet Rivaroxaban [Xarelto] 20 mg PO DAILY #30 tablet Sacubitril/Valsartan 24/26 mg [Entresto 24 mg-26 mg Tablet] 1 each PO BID #60 tablet Primary Care Physician: Jeevan Hook MD [Primary Care Provider] - Please follow up with your Primary Care Physician in: 1-2 weeks Please Follow Up With: Edu Orantes MD When: 2 weeks Disposition: Home Minutes spent on discharge:: 35 Patient Condition:: Stable Medical Necessity - Tobacco Use Smoking Status: Former smoker - Quit 30 years ago Tobacco Use: Non-smoker Meaningful Use Info Meaningful Use Diagnoses (Choose all that apply): None applicable <Yusuf Waite - Last Filed: 03/05/18 18:08> Discharge Date and Diagnosis - Primary Discharge Diagnosis Active and Suspected Problems Atrial flutter (Acute) Chest pain (Acute) Hospital Course and Treatment Consultations 03/03/18 11:40 MD to MD Notification of Procedure Routine MD Notified:: Edu Orantes Operations: None Procedures: Cardiac catheterization, Cardioversion, Transesophageal Echo, Transthoracic echo Summary of Care Provided: Patient seen and examined independently. Data reviewed. I agree with the above note by the physician physician's assistant. The patient is a 68 year old M presents with atrial flutter with RVR. Patient underwent cardiac catheterization showed normal coronaries. And echocardiogram showed an EF of about 10-15%. Patient was still symptomatic so patient underwent a DCC cardioversion on the that converted him to a normal sinus rhythm. Patient has remained in normal sinus rhythm. Patient will be discharged today with amiodarone taper, carvedilol and Xarelto. Patient will follow up with cardiology for further assessment of his ejection fraction this EF to see if a defibrillator may be necessary. [] - Physical Exam General: Alert, Cooperative HEENT: Atraumatic, PERRLA, EOMI, Normocephalic Lungs: Clear to auscultation, Normal air movement, No rhonchi, No wheeze Cardiovascular: Regular rate, Regular Rhythm, Normal S1, Normal S2 Abdomen: Bowel Sounds Present, Soft, Non Tender, Non-Distended Extremities: No edema, No Calf Tenderness Psych/Mental Status: Normal Affect, Appropriate Vital Signs Temp Pulse Resp BP Pulse Ox 36.8 C 57 L 14 106/66 93 03/05/18 15:17 03/05/18 15:17 03/05/18 15:17 03/05/18 15:17 03/05/18 15:17 Oxygen Flow Rate (L/min) 1 Oxygen Delivery Method Room Air Weight: 127 kg Body Mass Index (BMI) 38.0 Intake and Output for Last 24 Hours 03/03/18 03/04/18 03/05/18 23:59 23:59 23:59 Intake Total 589 / 589 707.2 / 707.2 984 / 984 Output Total 600 / 600 1525 / 1525 1000 / 1000 Balance -11 / -11 -817.8 / -817.8 -16 / -16 Laboratory Tests Past 24 Hrs 03/04/18 03/05/18 03/05/18 18:20 07:00 07:00 WBC RBC Hgb Hct MCV MCH MCHC RDW RDW Differential Plt Count MPV APTT 58.7 H 71.3 H Sodium 137 Potassium 3.9 Chloride 106 Carbon Dioxide 24.0 Anion Gap 7 BUN 16 Creatinine 1.04 Estim Creat Clear Calc 72.54 Est GFR (MDRD) Af Amer 91 Est GFR (MDRD) Non-Af 75 BUN/Creatinine Ratio 15.4 Glucose 106 Calcium 8.2 L 03/05/18 07:00 WBC 8.7 RBC 4.32 L Hgb 13.9 Hct 39.7 L MCV 91.9 MCH 32.2 H MCHC 35.0 RDW 12.7 RDW Differential 41.6 Plt Count 162 MPV 10.0 APTT Sodium Potassium Chloride Carbon Dioxide Anion Gap BUN Creatinine Estim Creat Clear Calc Est GFR (MDRD) Af Amer Est GFR (MDRD) Non-Af BUN/Creatinine Ratio Glucose Calcium Discharge Diet: Low fat/ Low Cholesterol, 2000 mg Sodium Diet Discharge Activity: Return to Normal Activity Disposition: Home Minutes spent on discharge:: 35 Patient Condition:: Stable Medical Necessity - Tobacco Use Smoking Status: Former smoker Tobacco Use: Non-smoker Meaningful Use Info Meaningful Use Diagnoses (Choose all that apply): None applicable Code Visit Inpatient E&M: 86803 Disch Hosp
--- NOTE | 2018-03-05 19:12 | PN.CARD_ITS ---
Subjectve: The patient is awake and alert. He states he is feeling better than when he arrived at the hospital. He has no new acute complaints. Objective: Vital Signs Temp Pulse Resp BP Pulse Ox 98.3 F 57 L 14 106/66 93 03/05/18 15:17 03/05/18 15:17 03/05/18 15:17 03/05/18 15:17 03/05/18 15:17 Oxygen Flow Rate (L/min) 1 Oxygen Delivery Method Room Air Weight: 279 lb 15.793 oz Body Mass Index (BMI) 38.0 Intake and Output for Last 24 Hours 03/03/18 03/04/18 03/05/18 23:59 23:59 23:59 Intake Total 589 / 589 707.2 / 707.2 984 / 984 Output Total 600 / 600 1525 / 1525 1000 / 1000 Balance -11 / -11 -817.8 / -817.8 -16 / -16 General: Awake, Alert, Oriented x 3, Cooperative, No Acute Distress HEENT: Atraumatic, PERRL, EOMI, Sclera Non Icteric Neck: Supple, Good ROM, No JVD Lungs: Clear to auscultation Cardiovascular: Regular Rhythm, Normal S1, Normal S2 Vascular: Normal Femoral Pulses, Normal Radial Pulses Abdomen: Bowel Sounds Present, Soft, Non Tender Extremities: No Cyanosis, No Clubbing, No edema Neurological: No Focal Motor or Sensory Deficit Psych/Mental Status: Appropriate 03/05/18 07:00: Sodium 137, Potassium 3.9, Chloride 106, Carbon Dioxide 24.0, Anion Gap 7, BUN 16, Creatinine 1.04, Est GFR (MDRD) Af Amer 91, Est GFR (MDRD) Non-Af 75, BUN/Creatinine Ratio 15.4, Glucose 106, Calcium 8.2 L 03/05/18 07:00: APTT 71.3 H 03/05/18 07:00: WBC 8.7, RBC 4.32 L, Hgb 13.9, Hct 39.7 L, MCV 91.9, MCH 32.2 H, MCHC 35.0, RDW 12.7, RDW Differential 41.6, Plt Count 162, MPV 10.0 Rhythm: Sinus rhythm Medical Necessity - Tobacco Use Smoking Status: Former smoker Tobacco Use: Non-smoker Assessment/Plan 1. Atrial flutter The patient, since his synchronized biphasic DC cardioversion, but has been maintaining sinus rhythm. He will continue medical management with rate control, antiarrhythmic therapy, and anticoagulant therapy. He will need future outpatient follow-up of his underlying rate and rhythm. He still may need to be considered at some point in time in the future for further EP evaluation for possible EPS/RFA of his atrial flutter. 2. Cardiomyopathy Again he appears to have a non-CAD related cardiomyopathy. He should continue medical management. Ideally this would include agents such as beta blockers and afterload reducing agents. Hopefully regaining sinus rhythm and maintaining rate control will allow his ventricle an opportunity to improve with respect to overall LV systolic function. This will need to be followed over time with echocardiographic studies. Comment: The above was discussed and reviewed with the patient and his spouse at great length. He was agreeable to continuing medical management and outpatient cardiovascular follow-up. The above was also discussed with the [facility] hospitalist team. This note was generated with [employer] dictation software. It may contain incorrect words, spelling, and punctuation that were not noted in checking the note before signing.
--- NOTE | 2018-03-05 19:46 | NURSING ---
DR. PENA SEEN PATIENT AND REVIEWED ALL MEDICATIONS AND IMPORTANCE FOR FOLLOW UP. KEPT QUESTIONING MD ABOUT WHY HE HAD TO TAKE MEDS FOR POSSIBILITIES- EX..PREVENT STROKE FOR BLOOD THINNER. MD EXPLAINED IN DETAIL AND AT [place] NURSE REINFORCED ALL MEDICATIONS AND FOLLOW UP
== END 2018-03-05 19:20 | disposition home or self-care (01) | DRG 287 ==
LOC: ED 10:11 → PCU 10:13
PROVIDERS: Internal Medicine Cardiovascular Disease; Emergency Provider Emergency Medicine; Family Provider Family Medicine; PCP Family Medicine
DX: I48.3 Typical atrial flutter (principal); I42.9 Cardiomyopathy, unspecified; I25.10 Atherosclerotic heart disease of native coronary artery without angina pectoris; R07.89 Other chest pain; I51.7 Cardiomegaly; Z87.891 Personal history of nicotine dependence
CPT/HCPCS: 36415; 71046; 80048; 80061; 81002; 84439; 84443; 84484; 85025; 85027; 85610; 85730; 92960; 93005; 93306; 93312; 93320; 93325; 93454; 97802; 99152; 99153; 99285; J7040; Q9957; A4216; C1769; C1894; C8929; Q9967